=== PATIENT | male | born 1930 | race Caucasian/White ===

== ENCOUNTER 2016-08-19 | Emergency (ER) | payer MEDICARE ==
--- NOTE | 2016-08-19 01:01 | ER Document Report ---
ED General - General Chief Complaint: Testicular Problem Stated Complaint: TESTICULAR ISSUE Cannot obtain history due to: Dementia Notes: Patient is an 86-year-old male who presents with facility concerns that he had a testicular ultrasound performed earlier today that demonstrated no blood flow to the left testicle. Patient himself at time of arrival denies any complaints. He is demented and provides minimal history. He does state that the testicle had been causing pain for quite some time but has not been bothering him for the past several days. TRAVEL OUTSIDE OF THE [place] IN LAST 30 DAYS: No - Related Data Allergies/Adverse Reactions: Sulfa (Sulfonamide Antibiotics) Allergy (Verified 11/16/15 16:29) Past Medical History - General Information source: Emergency Med Personnel Cannot obtain history due to: Dementia - Social History Smoking Status: Former Smoker Frequency of alcohol use: None Drug Abuse: None Lives with: Prison Family History: Reviewed & Not Pertinent - Past Medical History Cardiac Medical History: Reports: Hx Hypercholesterolemia, Hx Hypertension Psychiatric Medical History: Denies: Hx Depression Past Surgical History: Reports: Hx Genitourinary Surgery - SUPRAPUBIC CATHETER Review of Systems - Review of Systems Notes: Constitutional: Negative for fever. HENT: Negative for sore throat. Eyes: Negative for visual changes. Cardiovascular: Negative for chest pain. Respiratory: Negative for shortness of breath. Gastrointestinal: Negative for abdominal pain, vomiting or diarrhea. Genitourinary: Negative for dysuria. Musculoskeletal: Negative for back pain. Skin: Negative for rash. Neurological: Negative for headaches, weakness or numbness. 10 point ROS negative except as marked above and in HPI. Physical Exam - Vital signs Vitals: Temp Pulse Resp BP Pulse Ox 98.6 F 81 16 142/70 H 97 08/19/16 00:15 08/19/16 00:15 08/19/16 00:15 08/19/16 00:15 08/19/16 00:15 Interpretation: Normal Notes: PHYSICAL EXAMINATION: GENERAL: Elderly-appearing male in no acute distress HEAD: Atraumatic, normocephalic. EYES: sclera anicteric, conjunctiva are normal. ENT: nares patent, oropharynx clear without exudates. Moist mucous membranes. NECK: Normal range of motion, supple without lymphadenopathy LUNGS: Breath sounds clear to auscultation bilaterally and equal. No wheezes rales or rhonchi. HEART: Regular rate and rhythm without murmurs ABDOMEN: Soft, nontender, normoactive bowel sounds. No guarding, no rebound. No masses appreciated. : The left testicle is somewhat firm and there is no cremasteric reflex on the left. No tenderness to palpation. NEUROLOGICAL: No focal neurological deficits. Moves all extremities spontaneously and on command. PSYCH: Oriented to person and city. SKIN: Warm, Dry, normal turgor, no rashes or lesions noted. Course - Re-evaluation Re-evalutation: 08/19/16 01:03 Patient presents with a ultrasound read of no blood flow to the left testicle. He has minimal to no pain by history or on exam. Testicle is slightly firm. I discussed this case with Dr. Polk who is the attending urologist purification operator [facility] who agrees that given the patient has no symptoms at this time, the testicles likely been for some time and would not be operated on or managed in any way except if it became a nidus of infection.At this time will discharge with return precautions and follow-up recommendations. Verbal discharge instructions given a the bedside and opportunity for questions given. Medication warnings reviewed. Patient is in agreement with this plan and has verbalized understanding of return precautions and the need for primary care follow-up in the next 24-72 hours. - Vital Signs Vital signs: Temp Pulse Resp BP Pulse Ox 98.6 F 81 16 142/70 H 97 08/19/16 00:15 08/19/16 00:15 08/19/16 00:15 08/19/16 00:15 08/19/16 00:15 Discharge - Discharge Clinical Impression: Testicular infarct, left Condition: Good Disposition: HOME, SELF-CARE Additional Instructions: The left testicle is . There is nothing to do about this at this time unless this becomes a source of infection. Please return the patient to the emergency department if he develops a fever greater than 100.4F, begins complaining of severe pain to the testicle, or has any other symptoms that are worrisome to.
[2016-08-19 09:35] VITALS: BP 140/59
== END 2016-08-19 04:48 | disposition home or self-care (01) ==
LOC: ER
DX: N50.812 Left testicular pain (principal); E78.00 Pure hypercholesterolemia, unspecified; I10 Essential (primary) hypertension; Z88.2 Allergy status to sulfonamides
CPT/HCPCS: 99285

== ENCOUNTER 2016-11-10 12:40 | Emergency (ER) | payer MEDICARE ==
--- NOTE | 2016-11-10 15:25 | ER Document Report ---
ED Fever - General Chief Complaint: Fever Stated Complaint: ALTERED MENTAL STATUS Time Seen by Provider: 11/10/16 15:22 Notes: Patient is an 86-year-old male who presents by EMS from [facility] after his temperature was found to be 102.4 at 1300 today. He was given 500 mg Tylenol and his temperature in the ER is 99.6. He has no complaints at this time. He denies nausea, vomiting, abdominal pain, rash, shortness of breath, chest pain, cough, urinary symptoms, diarrhea or constipation. TRAVEL OUTSIDE OF THE [place] 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 RESPIRATORY: -cough, -SOB GASTROINTESTINAL: -abdominal pain, - nausea, -vomiting, -diarrhea GENITOURINARY: +clody urine, -dysuria, -hematuria MUSCULOSKELETAL: -back pain, -neck pain SKIN: -rash or skin lesions. HEMATOLOGIC: -easy bruising or bleeding. LYMPHATIC: -swollen, enlarged glands. NEUROLOGICAL: -altered mental status or loss of consciousness, -headache, - neurologic symptoms PSYCHIATRIC: -anxiety, -depression. ALL OTHER SYSTEMS REVIEWED AND NEGATIVE. Physical Exam - Vital signs Vitals: Temp Pulse Resp BP Pulse Ox 98.8 F 81 18 151/63 H 91 L 11/10/16 12:50 11/10/16 12:50 11/10/16 12:50 11/10/16 12:50 11/10/16 12:50 - Notes Notes: PHYSICAL EXAMINATION: GENERAL: Well-appearing, well-nourished and in no acute distress. HEAD: Atraumatic, normocephalic. EYES: Pupils equal round and reactive to light, extraocular movements intact, sclera anicteric, conjunctiva are normal. ENT: nares patent, oropharynx clear without exudates. Moist mucous membranes. NECK: Normal range of motion, supple without lymphadenopathy LUNGS: Breath sounds clear to auscultation bilaterally and equal. No wheezes rales or rhonchi. HEART: Regular rate and rhythm without murmurs ABDOMEN: Soft, nontender, normoactive bowel sounds. No guarding, no rebound. No masses appreciated.Suprapubic catheter in place with cloudy yellow urine EXTREMITIES: Normal range of motion, no pitting or edema. No cyanosis. NEUROLOGICAL: Cranial nerves grossly intact. Normal speech, normal gait. Normal sensory and motor exams. PSYCH: Normal mood, normal affect. SKIN: Warm, Dry, normal turgor, no rashes or lesions noted. Course - Re-evaluation Re-evalutation: Patient appears very well. He has a suprapubic catheter with cloudy urine in bag. His chest x-ray shows possible infiltrate. Looking through old urine cultures, will begin Levaquin to help with UTI and also with possible early pneumonia. He is adamant that he does not want his suprapubic catheter changed and understands that he could become sicker. He also does not want any blood work. He is AAO 3 and capable of making his own decisions. Given strict return precautions and he understands. Will discharge him back to [facility]. - Vital Signs Vital signs: Temp Pulse Resp BP Pulse Ox 98.8 F 81 18 151/63 H 91 L 11/10/16 12:50 11/10/16 12:50 11/10/16 12:50 11/10/16 12:50 11/10/16 12:50 - EKG Interpretation by Ca EKG shows normal: Sinus rhythm, Bronson, Intervals, QRS Complexes, ST-T Waves Rate: Normal Discharge - Discharge Clinical Impression: Fever Qualifiers: Fever type: unspecified Qualified Code(s): R50.9 - Fever, unspecified Condition: Stable Disposition: REHAB FACILITY Additional Instructions: Begin the Levaquin as prescribed for urinary tract infection and possible pneumonia. Return if you have worsening symptoms. URINARY TRACT INFECTION: Your evaluation indicates that you have a urinary tract infection. This is due to germs growing in the bladder. This is a common problem. This infection usually responds quickly to antibiotics. Your antibiotic should be taken exactly as prescribed. Drink plenty of fluids -- three to four quarts a day. Occasionally, a bladder anesthetic will be prescribed to help stop the feeling of urgency until the antibiotic has a chance to clear the infection. This may cause your urine to be dark orange. Certain urine infections require a culture. If the doctor obtained a culture, the results will be back in two days. You should call to see if a change in treatment is needed. A repeat urinalysis after you finish treatment is often recommended. The physician will let you know if further testing is required. Call the doctor if you develop fever, chills, flank pain, inability to urinate, or blood in the urine. ANTIBIOTIC THERAPY: You have been given an antibiotic prescription. It's important that you take all the medication, unless instructed otherwise by your physician. Failure to complete the entire course can result in relapse of your condition. Common side effects of antibiotics include nausea, intestinal cramping, or diarrhea. Women may develop vaginal yeast infections, and babies can get yeast (thrush) in the mouth following the use of antibiotics. Contact your physician if you develop significant side effects from this medication. Allergy to this antibiotic can result in hives, wheezing, faintness, or itching. If symptoms of allergy occur, stop the medication and call the doctor. LEVOFLOXACIN: You have been given an antibacterial agent, levofloxacin (Levaquin). This medicine is not related to the penicillins, sulfas, cephalosporins, or tetracyclines. It is often given to patients who are allergic to these drugs. It has been chosen for you either because other drugs are not appropriate, or because of the nature of your problem. Levaquin should not be taken with antacids, as these can decrease its effectiveness. It can be taken without regard to meals. LEVAQUIN SHOULD NOT BE TAKEN BY CHILDREN, NURSING WOMEN, OR WOMEN. Although Levaquin is usually well-tolerated, common side effects can include nausea and diarrhea. Contact your doctor if you experience any unusual symptoms while on this medication, such as joint pain or swelling, shortness of breath, wheezing, faintness, or hives. FOLLOW-UP CARE: If you have been referred to a physician for follow-up care, call the physician s office for an appointment as you were instructed or within the next two days. If you experience worsening or a significant change in your symptoms, notify the physician immediately or return to the Emergency Department at any time for re-evaluation. Prescriptions: Levofloxacin [Levaquin 750 mg Tablet] 750 mg PO DAILY #7 tablet
--- NOTE | 2016-11-10 16:34 | RADIOLOGY REPORT (SQ) ---
EXAM DESCRIPTION: CHEST SINGLE VIEW COMPLETED DATE/TIME: 11/10/2016 3:53 pm REASON FOR STUDY: fever COMPARISON: November 2015 EXAM PARAMETERS: NUMBER OF VIEWS: One view. TECHNIQUE: Single frontal radiographic view of the chest acquired. RADIATION DOSE: NA LIMITATIONS: Patient has made a shallow inspiration. Patient is rotated on the current study. FINDINGS: LUNGS AND PLEURA: There is blunting of the left costophrenic angle consistent with a small left pleural effusion and I cannot exclude some associated atelectasis or infiltrate in the left lizet g base. Remaining lung caceres are clear. MEDIASTINUM AND HILAR STRUCTURES: No masses. Contour normal. HEART AND VASCULAR STRUCTURES: Cardiac silhouette is partially obscured due to adjacent densities but appears unchanged. BONES: No acute findings. HARDWARE: None in the chest. OTHER: No other significant finding. IMPRESSION: Left basilar density consistent with a small left pleural effusion and I cannot exclude some associated atelectasis or infiltrate in the left lung base. Other findings as noted above TECHNICAL DOCUMENTATION: JOB ID: [id number]
[2016-11-10 18:31] VITALS: BP 168/65
--- NOTE | 2016-11-10 20:32 | EKG REPORT ---
SEVERITY:- ABNORMAL ECG - SINUS RHYTHM BORDERLINE LEFT AXIS DEVIATION OLD ANTEROSEPTAL MS : Confirmed by: Eduardo Covington MD 10-Nov-2016 20:31:23
== END 2016-11-10 21:01 ==
LOC: ER 12:40
DX: R50.9 Fever, unspecified (principal); R41.82 Altered mental status, unspecified; E78.00 Pure hypercholesterolemia, unspecified; I10 Essential (primary) hypertension; Z88.2 Allergy status to sulfonamides
CPT/HCPCS: 71010; 93005; 93010; 99285

== ENCOUNTER → 2017-01-04 | Outpatient (CLI) | payer MEDICARE ==
--- NOTE | 2017-01-07 08:57 | XCELERA REPORT ---
[address] [address] Lower Extremity Arterial Evaluation Name: WILLA MCCLOUD Age: 86 yrs Gender: Male : 1930 Patient Status: Preadmit Patient Location: Study Date: 01/04/2017 01:44 PM Procedure: A color flow and duplex scan of the lower extremity arteries was performed bilaterally with velocity and waveform anaylsis. Ankle brachial indicies performed. 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 Biphasic in the Deep Femoral artery. Biphasic in the infrageniculate vessels. Retrograde filling in the Dorsalis Pedis artery. 0-19% stenosis at the Deep Femoral and 20-49 % at the infrageniculate vessels. Ankle Brachial index is 0.96. Left Side Arterial Evaluation Normal velocity and triphasic waveforms noted from the Common Femoral artery to the Popliteal artery . Biphasic in the Deep Femoral artery. Biphasic in the infrageniculate vessels. 0-19% stenosis at the Deep Femoral and 20-49 % at the infrageniculate vessels. Ankle Brachial index is 0.78. Interpretation Summary Moderate hemodynamically significant lesions in the bilateral lower extremities, on duplex imaging, at rest. : ANTONIO AGUILLON > Shaun Acevedo
== END ==
LOC: SP 13:20
PROVIDERS: ATTEND Nurse Practitioner Family
DX: L89.610 Pressure ulcer of right heel, unstageable (principal)
CPT/HCPCS: 93925

== ENCOUNTER 2017-11-17 01:15 | Inpatient (IN) | payer MEDICARE ==
--- NOTE | 2017-11-17 01:56 | ER Document Report ---
ED General - General Chief Complaint: Leg Swelling Stated Complaint: DIFFICULTY BREATHING Time Seen by Provider: 11/17/17 01:54 Notes: Patient is an 87-year-old male who presents with complaint of difficulty breathing. Patient is hard of hearing and therefore history is hard to obtain. Initially patient says he was just itching but then I informed him that the paramedics said that he had difficulty breathing [facility]. Patient then remembers that he did have some difficulty breathing earlier. He is unsure if had chest pain. He denies a history of heart problems or heart disease. He says currently he feels fine except for itching which is chronic due to his dry skin. Denies recent fevers or infections. No other complaints at this time. TRAVEL OUTSIDE OF THE [place] IN LAST 30 DAYS: No - Related Data Allergies/Adverse Reactions: Sulfa (Sulfonamide Antibiotics) Allergy (Verified 11/17/17 02:16) Past Medical History - Social History Smoking Status: Never Smoker Frequency of alcohol use: None Drug Abuse: None Family History: Reviewed & Not Pertinent - Past Medical History Cardiac Medical History: Reports: Hx Hypercholesterolemia, Hx Hypertension Psychiatric Medical History: Denies: Hx Depression Past Surgical History: Reports: Hx Genitourinary Surgery - SUPRAPUBIC CATHETER - Immunizations Hx Diphtheria, Pertussis, Tetanus Vaccination: Yes Review of Systems - Review of Systems Notes: My Normal Review Basic REVIEW OF SYSTEMS: CONSTITUTIONAL : Denies fever, chills, or sweats. Denies recent illness. EENT: Denies eye, ear, throat, or mouth pain or symptoms. Denies nasal or sinus congestion. CARDIOVASCULAR: Denies chest pain. RESPIRATORY: episode of dyspnea GASTROINTESTINAL: Denies abdominal pain. Denies nausea, vomiting, or diarrhea. GENITOURINARY: Has a suprapubic catheter in place. SKIN: Denies rash or skin lesions. NEUROLOGICAL: Denies altered mental status or loss of consciousness. Denies headache. Denies weakness or paralysis or loss of use of either side. Denies problems with gait or speech. Denies sensory or motor loss. ALL OTHER SYSTEMS REVIEWED AND NEGATIVE. Physical Exam - Vital signs Vitals: Temp 98.5 F 11/17/17 01:20 - Notes Notes: General Appearance: Well nourished, alert, cooperative, no acute distress, no obvious discomfort. Ill-appearing. Vitals: reviewed, See vital signs table. Head: no swelling or tenderness to the head Eyes: PERRL, EOMI, Conjuctiva clear Mouth: No decreasd moisture Lungs: No wheezing, No rales, No rhonci, No accessory muscle use, good air exchange bilaterally. Heart: Normal rate, Regular rythm, No murmur, no rub Abdomen: Normal BS, soft, No rigidity, No abdominal tenderness, No guarding, no rebound, no abdominal masses, no organomegaly Extremities: strength 5/5 in all extremities, good pulses in all extremities, no swelling or tenderness in the extremities, no edema. Skin: warm, dry, appropriate color, no rash Neuro: speech clear, oriented x 3, normal affect, responds appropriately to questions. Course - Re-evaluation Re-evalutation: 11/17/17 02:44 Patient is currently chest pain-free. He is not currently short of breath but did have shortness of breath tonight and last night. This is most likely is why he has the T-wave inversion and elevated troponin. Informed the nurse to obtain the weight so they can determine how much Lovenox give him. I did inform the patient of the findings. He is aware. He denies any previous history of heart attack. 11/17/17 04:[address] speak with Dr. Gray about admitting the patient. He requested to speak with cardiology first. I did speak with Dr. Stubbs, benefits specialist, who agrees that the patient can stay here at our facility; however, he just request the patient also a CTA of his lungs as part of his workup. CT has been ordered. 11/17/17 07:04 Patient is admitted. Urinalysis and outcome back does show evidence very tract infection. - Vital Signs Vital signs: Temp Pulse Resp BP Pulse Ox 97.7 F 70 20 196/97 H 100 11/17/17 06:45 11/17/17 06:45 11/17/17 06:45 11/17/17 06:45 11/17/17 06:45 - Laboratory Result Diagrams: 11/17/17 01:27 11/17/17 01:27 Laboratory results interpreted by me: 11/17/17 11/17/17 11/17/17 01:27 01:27 03:41 WBC 10.6 H RBC 3.29 L Hgb 9.3 L Hct 27.9 L RDW 16.3 H Seg Neutrophils % 88.9 H Lymphocytes % 5.3 L Absolute Neutrophils 9.5 H Chloride 109 H BUN 24 H Creatinine 1.27 H Est GFR (Non-Af Amer) 54 L Glucose 117 H Calcium 8.0 L Albumin 3.0 L Urine Protein >=500 H Urine Blood MODERATE H Urine Nitrite POSITIVE H Ur Leukocyte Esterase LARGE H - EKG Interpretation by Me Additional EKG results interpreted by me: 11/17/17 01:55 EKG is reviewed and interpreted by me. EKG shows sinus rhythm with rate of [address] segment elevation or depression. Patient does have new T-wave inversions in lateral precordial leads which are new in comparison to her old EKG from November 10, 2016. AL interval is slightly prolonged. QRS duration is within normal range. QTc interval is prolonged. Discharge - Discharge Clinical Impression: Elevated troponin Dyspnea Qualifiers: Dyspnea type: unspecified Qualified Code(s): R06.00 - Dyspnea, unspecified UTI (urinary tract infection) Qualifiers: Urinary tract infection type: catheter-associated UTI Encounter type: initial encounter Qualified Code(s): T83.51XA - Infection and inflammatory reaction due to indwelling urinary catheter, initial encounter Condition: Stable Disposition: ADMITTED INPATIENT Admitting Provider: Hospitalist Unit Admitted: [facility]
[2017-11-17 02:18] LABS: ALANINE AMINOTRANSFERASE 22 U/L (21-72); ALKALINE PHOSPHATASE 80 U/L (38-126); ANION GAP 11 (5-19); ASPARTATE AMINO TRANSFERASE 50 U/L (17-59); BILIRUBIN,DIRECT 0.4 mg/dL (0.0-0.4); BILIRUBIN,TOTAL 0.5 mg/dL (0.2-1.3); BLOOD UREA NITROGEN 24 mg/dL (7-20); CARBON DIOXIDE 23 mmol/L (22-30); CHLORIDE 109 mmol/L (98-107); GLUCOSE 117 mg/dL (75-110); POTASSIUM 4.2 mmol/L (3.6-5.0); SODIUM 142.7 mmol/L (137-145); TOTAL PROTEIN 6.5 g/dL (6.3-8.2)
[2017-11-17 02:19] LABS: ABSOLUTE EOSINOPHILS # (AUTO) 0.1 10^3/uL (0.0-0.6); ABSOLUTE LYMPHOCYTES (AUTO) 0.6 10^3/uL (0.5-4.7); ABSOLUTE MONOCYTES (AUTO) 0.5 10^3/uL (0.1-1.4); ABSOLUTE NEUT (AUTO) 9.5 10^3/uL (1.7-8.2); BASOPHILS % (AUTO) 0.3 % (0-2); EOSINOPHILS % (AUTO) 0.9 % (0-6); HEMATOCRIT 27.9 % (37.9-51.0); HEMOGLOBIN 9.3 g/dL (13.5-17.0); LYMPHOCYTES % (AUTO) 5.3 % (13-45); MEAN CORPUSCULAR HEMOGLOBIN 28.2 pg (27.0-33.4); MEAN CORPUSCULAR HGB CONC 33.3 g/dL (32.0-36.0); MEAN CORPUSCULAR VOLUME 85 fl (80-97); MONOCYTES % (AUTO) 4.6 % (3-13); PLATELET COUNT 213 10^3/uL (150-450); RED BLOOD COUNT 3.29 10^6/uL (4.35-5.55); RED CELL DISTRIBUTION WIDTH 16.3 % (11.5-14.0); SEGMENTED NEUTROPHILS % (AUTO) 88.9 % (42-78); TOTAL CELLS COUNTED % (AUTO) 100 %; WHITE BLOOD COUNT 10.6 10^3/uL (4.0-10.5)
[2017-11-17] MEDS ORDERED: ASPIRIN 325 MG TABLET PO ONE (03:04)
[2017-11-17] MEDS: ENOXAPARIN SODIUM INJ 100 MG/1 ML DISP.SYRIN SUBCUT SCH ×3 (03:21→22:12)
--- NOTE | 2017-11-17 03:21 | RADIOLOGY REPORT (SQ) ---
EXAM DESCRIPTION: XR CHEST 1 VIEW COMPLETED DATE/TME: 11/17/2017 02:04 EXAM DESCRIPTION: Single view of the chest CLINICAL HISTORY: dyspnea COMPARISON: None. FINDINGS: Single frontal view of the chest. Atherosclerotic vascular calcification. The heart is not definitely enlarged. Small left pleural effusion and left basilar airspace opacity. No pneumothorax identified. Leads overlie the chest. No acute osseous abnormalities. Degenerative change of the shoulders Upper abdominal soft tissues are unremarkable. IMPRESSION: 1. Left basilar airspace opacity may be related to atelectasis or pneumonia with small left pleural effusion
[2017-11-17] MEDS ORDERED: NORMAL SALINE 1000 ML 1,000 ML IV ONE (04:40)
[2017-11-17 04:45] LABS: APPEARANCE,URINE TURBID; BILIRUBIN,URINE NEGATIVE (NEGATIVE); COLOR,URINE YELLOW; GLUCOSE, URINE NEGATIVE (NEGATIVE); KETONES,URINE NEGATIVE (NEGATIVE); LEUKOCYTE ESTERASE,URINE LARGE (NEGATIVE); NITRITE,URINE POSITIVE (NEGATIVE); PROTEIN,URINE >=500 mg/dL (NEGATIVE); URINE SPECIFIC GRAVITY 1.007; UROBILINOGEN,URINE NEGATIVE mg/dL (<2.0)
[2017-11-17] MEDS ORDERED: NITROGLYCERIN 0.4 MG/TAB 25 TAB/BOTTLE SL PRN (04:50)
[2017-11-17] MEDS ORDERED: NORMAL SALINE 1000 ML 1,000 ML IV SCH (05:00)
[2017-11-17] MEDS ORDERED: ATORVASTATIN CALCIUM 80 MG TABLET PO ONE (05:00)
[2017-11-17] MEDS ORDERED: CEFTRIAXONE 1 GM/D5W RTU 1 GM/50 ML RTUPB IV ONE (05:00)
[2017-11-17] MEDS ORDERED: CEFTRIAXONE INJ 1000 MG VIAL ONE (05:22)
--- NOTE | 2017-11-17 06:37 | RADIOLOGY REPORT (SQ) ---
EXAM DESCRIPTION: CT CHEST ANGIOGRAPHY WITHOUT THEN WITH IV CONTRAST COMPLETED DATE/TME: 11/17/2017 04:39 EXAM DESCRIPTION: CTA of the chest per PE protocol with contrast. CLINICAL HISTORY: dyspnea, elevated troponin. BUN 24 CREATININE 1.27 COMPARISON: 11/16/2015 TECHNIQUE: CTA of the chest obtained following the uncomplicated intravenous administration of 99 mL Isovue-370. 3-D/MIP reformatted images of the chest available for evaluation. DLP: 1427.26 mGycm FINDINGS: Chest: Pulmonary arteries: Contrast bolus is adequate.No filling defects identified in the pulmonary arteries to suggest pulmonary embolus. Suboptimal evaluation of the subsegmental pulmonary arterial branches due to respiratory motion artifact. Thyroid:No abnormalities of the visualized thyroid. Great Vessels:Great vessels have normal anatomic configuration. Thoracic Aorta: Atherosclerotic calcification of the thoracic aorta. Heart: Cardiomegaly with coronary artery atherosclerosis. No significant pericardial effusion. Lymph Nodes:No enlarged mediastinal lymph nodes identified. Esophagus:No abnormalities of the esophagus identified. Other:No additional findings. Lungs: Respiratory motion artifact. Minimal bibasilar compressive atelectasis. Diffuse peribronchial interstitial thickening. Pleura: Small bilateral pleural effusions. No pneumothorax. Trachea/Airways: No acute abnormalities of the visualized trachea. Bones:No destructive osseous lesions. Degenerative change of the spine. Upper Abdomen:Limited images of the upper abdomen demonstrate no definite abnormalities of visualized portions of the liver, gallbladder, pancreas, spleen, adrenal glands, or kidneys. IMPRESSION: 1. Diffuse peribronchial interstitial thickening. This could be related to acute bronchitis or bronchopneumonia however a component of interstitial edema could also produce this appearance. 2. Mild bilateral common breasts of atelectasis. 3. Small bilateral pleural effusions. 4. Cardiomegaly with coronary artery atherosclerosis. 5. No pulmonary embolus identified. This exam was performed according to our departmental dose-optimization program, which includes automated exposure control, adjustment of the mA and/or kV according to patient size and/or use of iterative reconstruction technique.
--- NOTE | 2017-11-17 06:51 | PDOC H&P ---
History of Present Illness Admission Date/PCP: 11/17/17 05:03 CHERELLE DAMASOCARTER Patient complains of: Shortness of breath History of Present Illness: WILLA MCCLOUD is a 87 year old male [facility] resident with a past medical history of schizophrenia, hypertension, dyslipidemia and permanent suprapubic catheter. He is noted by nursing staff to have shortness of breath and brought to the emergency room for evaluation where he denies pain or shortness of breath. Evaluation reveals new T-wave inversion and elevated troponin of 2.5. Heparin is initiated and a CTA chest is ordered and is referred to the hospitalist for admission. Patient is unable to provide a helpful history. Past Medical History Cardiac Medical History: Reports: Hyperlipidema, Hypertension Psychiatric Medical History: Reports: Schizoaffective Disorder Denies: Depression Hematology: Reports: Anemia Social History Information Source: [facility] Records Lives with: [facility] Smoking Status: Unknown if Ever Smoked Frequency of Alcohol Use: None Hx Recreational Drug Use: No Drugs: None Hx Prescription Drug Abuse: No - Advance Directive Resuscitation Status: Full Code Family History Family History: Other - Unobtainable Parental Family History Reviewed: No - Unobtainable Children Family History Reviewed: No Sibling(s) Family History Reviewed.: No Medication/Allergy Home Medications: Allopurinol 300 mg PO DAILY 07/03/15 Clonidine HCl 0.3 mg PO BID 07/03/15 Finasteride 5 mg PO DAILY 07/03/15 Losartan Potassium 100 mg PO DAILY 07/03/15 Nifedipine [Nifedipine ER] 90 mg PO DAILY 07/03/15 Cyanocobalamin (Vitamin B-12) [Vitamin B12] 500 mcg PO DAILY 11/16/15 Polyethylene Glycol 3350 [Gavilax] 17 gm PO PRN PRN 11/16/15 Levofloxacin [Levaquin 750 mg Tablet] 750 mg PO DAILY #5 tablet 11/21/15 Quetiapine Fumarate 75 mg PO QHS #0 11/21/15 Levofloxacin [Levaquin 750 mg Tablet] 750 mg PO DAILY #7 tablet 11/10/16 Allergies/Adverse Reactions: Sulfa (Sulfonamide Antibiotics) Allergy (Verified 11/17/17 02:16) Review of Systems ROS unobtainable: Due to mental status - Unobtainable Constitutional: PRESENT: as per HPI. ABSENT: fever(s), headache(s), night sweats, weakness Eyes: ABSENT: visual disturbances Ears: ABSENT: hearing changes Cardiovascular: ABSENT: chest pain, dyspnea on exertion, edema, orthropnea, palpitations Respiratory: ABSENT: cough, hemoptysis Gastrointestinal: ABSENT: abdominal pain, constipation, diarrhea, hematemesis, hematochezia, nausea, vomiting Genitourinary: ABSENT: dysuria, hematuria Musculoskeletal: ABSENT: joint swelling Integumentary: ABSENT: rash, wounds Neurological: ABSENT: abnormal gait, abnormal speech, confusion, dizziness, focal weakness, syncope Psychiatric: ABSENT: anxiety, depression, homidical ideation, suicidal ideation Endocrine: ABSENT: cold intolerance, heat intolerance, polydipsia, polyuria Hematologic/Lymphatic: ABSENT: easy bleeding, easy bruising Physical Exam Vital Signs: Temp Pulse Resp BP Pulse Ox 98.5 F 17 169/99 H 97 11/17/17 01:20 11/17/17 05:00 11/17/17 04:01 11/17/17 05:00 General appearance: PRESENT: no acute distress, cooperative, hard of hearing, well-developed, well-nourished. ABSENT: disheveled Head exam: PRESENT: atraumatic, normocephalic Eye exam: PRESENT: conjunctiva pink, EOMI, PERRLA. ABSENT: scleral icterus Ear exam: PRESENT: normal external ear exam Mouth exam: PRESENT: moist, tongue midline Neck exam: ABSENT: carotid bruit, JVD, lymphadenopathy, thyromegaly Respiratory exam: PRESENT: clear to auscultation jen. ABSENT: rales, rhonchi, wheezes Cardiovascular exam: PRESENT: RRR. ABSENT: diastolic murmur, rubs, systolic murmur Pulses: PRESENT: normal dorsalis pedis pul Vascular exam: PRESENT: normal capillary refill GI/Abdominal exam: PRESENT: normal bowel sounds, soft. ABSENT: distended, guarding, mass, organolmegaly, rebound, tenderness Rectal exam: PRESENT: deferred Extremities exam: PRESENT: full ROM. ABSENT: calf tenderness, clubbing, pedal edema Neurological exam: PRESENT: alert, awake, oriented to person, oriented to place , oriented to time, oriented to situation, CN II-XII grossly intact. ABSENT: motor sensory deficit Psychiatric exam: PRESENT: appropriate affect, flat affect, normal mood. ABSENT : homicidal ideation, suicidal ideation Skin exam: PRESENT: dry, intact, warm. ABSENT: cyanosis, rash Results Impressions: Chest X-Ray 11/17/17 02:04 IMPRESSION: 1. Left basilar airspace opacity may be related to atelectasis or pneumonia with small left pleural effusion Chest/Abdomen CTA 11/17/17 04:39 IMPRESSION: 1. Diffuse peribronchial interstitial thickening. This could be related to acute bronchitis or bronchopneumonia however a component of interstitial edema could also produce this appearance. 2. Mild bilateral common breasts of atelectasis. 3. Small bilateral pleural effusions. 4. Cardiomegaly with coronary artery atherosclerosis. 5. No pulmonary embolus identified. This exam was performed according to our departmental dose-optimization program, which includes automated exposure control, adjustment of the mA and/or kV according to patient size and/or use of iterative reconstruction technique. Assessment & Plan - Diagnosis (1) Elevated troponin Is this a current diagnosis for this admission?: Yes Plan: Likely non-ST elevation FL, aspirin, heparin, Lopressor, morphine as needed cardiology consult, follow-up cardiac enzymes and cardiology consult. (2) Leukocytosis Qualifiers: Leukocytosis type: unspecified Qualified Code(s): D72.829 - Elevated white blood cell count, unspecified Is this a current diagnosis for this admission?: Yes Plan: Secondary to urinary tract infection, follow-up CBC and urine culture (3) Urinary tract infection Qualifiers: Urinary tract infection type: catheter-associated UTI Encounter type: initial encounter Is this a current diagnosis for this admission?: Yes Plan: Empiric antibiotics though possibly colonization secondary to long-standing suprapubic catheter. Follow-up CBC and urine culture. - Time Time Spent: 30 to 50 Minutes - Inpatient Certification Medical Necessity: Need Close Monitoring Due to Risk of Patient Decompensation
[2017-11-17 07:28] LABS: CREATINE KINASE MB 48.2 ng/mL (<4.55)
[2017-11-17 07:32] LABS: TROPONIN I 26.9 ng/mL
[2017-11-17] MEDS ORDERED: NITROGLYCERIN 2% OINTMENT 1 GM PACKET TP ONE (08:00)
[2017-11-17] MEDS: NITROGLYCERIN 50 MG/D5W 250 ML IV PRN (09:10)
[2017-11-17] MEDS: DOCUSATE SODIUM 100 MG CAPSULE PO SCH ×2 (09:13→17:02)
[2017-11-17] MEDS ORDERED: METOPROLOL TARTRATE 25 MG TABLET PO ONE (09:30)
[2017-11-17] MEDS ORDERED: CLONIDINE HCL 0.1 MG TABLET PO SCH (10:00)
[2017-11-17] MEDS ORDERED: ENALAPRILAT DIHYDRATE INJ/PF 1.25 MG/1 ML SDV IV ONE (11:15)
[2017-11-17] MEDS ORDERED: FAMOTIDINE 20 MG TABLET PO ONE (11:30)
[2017-11-17] MEDS ORDERED: TICAGRELOR 90 MG TABLET PO ONE (11:30)
[2017-11-17 13:40] LABS: CREATINE KINASE MB 39.8 ng/mL (<4.55); TROPONIN I 27.9 ng/mL
[2017-11-17] MEDS ORDERED: FUROSEMIDE INJ/PF 40 MG/4 ML SDV IV ONE (16:00)
--- NOTE | 2017-11-17 16:50 | XCELERA REPORT ---
[address] [address] Transthoracic Echocardiogram Report Name: WILLA MCCLOUD Age: 87 yrs Gender: Male : 1930 Patient Status: Inpatient Patient Location: [address] [place], [place] [address]A Study Date: 11/17/2017 02:34 PM Height: 71 in Weight: 195 lb BSA: 2.1 m2 Procedure: A two-dimensional transthoracic echocardiogram with color flow and Doppler was performed. The study was technically difficult with many images being suboptimal in quality. Reason For Study: NSTEMI / SOB / MURMUR History: NSTEMI / SOB / MURMUR. Ordering Physician: DEBBIE STUBBS Performed By: Blanca Perry Interpretation Summary The left ventricle is normal in size. There is normal left ventricular wall thickness. LV EF is 55% Left ventricular systolic function is low normal. Doppler measurements suggest pseudonormalized left ventricular relaxation, which is associated with grade II/IV or mild to moderate diastolic dysfunction All LV apical segments are akinetic.No clots see. There is no thrombus. The right ventricle is not well visualized secondary to technical limitations The right atrium is normal in size The left atrium is moderately dilated. The mitral valve leaflets appear thickened, but open well. There is no evidence of mitral valve prolapse. There is no vegetation seen on the mitral valve. There is no mitral valve stenosis. There is a moderate amount of mitral regurgitation There is no aortic valve stenosis There is no LVOT obstruction. No aortic regurgitation is present. There is Aortic Sclerosis without Aortic Stenosis. There is no tricuspid stenosis. There is a mild amount of tricuspid regurgitation RVSP is 43 mm of Hg , with RA mean of 10. There is mild pulmonary hypertension by echo There is a trace amount of pulmonic regurgitation There is no pulmonic valvular stenosis. Minimal pericardial effusion. There are no echocardiographic or Doppler indications for cardiac tamponade MMode/2D Measurements & Calculations RVDd: 4.3 cm LVIDd: 6.1 cm FS: 33.7 % Ao root diam: 3.0 cm IVSd: 1.1 cm LVIDs: 4.0 cm EDV(Teich): LVPWd: 1.1 cm 187.5 ml Ao root area: 7.3 cm2 ESV(Teich): LA dimension: 5.2 cm 72.0 ml EF(Teich): 61.6 % LA A2Cs: LA A4Cs: LA length: 5.1 cm LA Vol Index (BP): 28.2 cm2 23.8 cm2 54.0 ml/m2 LA Volume: 112.7 ml Doppler Measurements & Calculations MV E max ronak: MV P1/2t max ronak: Ao V2 max: LV V1 max P.0 cm/sec 63.6 cm/sec 159.5 cm/sec 3.1 mmHg MV A max ronak: MV P1/2t: 57.7 msec Ao max PG: LV V1 max: 132.7 cm/sec 10.2 mmHg 87.7 cm/sec MV E/A: 0.47 MVA(P1/2t): 3.8 cm2 MV dec slope: 322.8 cm/sec2 MV dec time: 0.20 sec PA V2 max: PI end-d ronak: TR max ronak: 92.1 cm/sec 92.3 cm/sec 287.8 cm/sec PA max P.4 mmHg TR max P.1 mmHg Left Ventricle The left ventricle is normal in size. There is normal left ventricular wall thickness. LV EF is 55%. Left ventricular systolic function is low normal. Doppler measurements suggest pseudonormalized left ventricular relaxation, which is associated with grade II/IV or mild to moderate diastolic dysfunction. All LV apical segments are akinetic.No clots see. There is no thrombus. Right Ventricle The right ventricle is not well visualized secondary to technical limitations. Atria The right atrium is normal in size. The left atrium is moderately dilated. Mitral Valve The mitral valve leaflets appear thickened, but open well. There is no evidence of mitral valve prolapse. There is no vegetation seen on the mitral valve. There is no mitral valve stenosis. There is a moderate amount of mitral regurgitation. Aortic Valve There is no aortic valvular vegetation. There is no aortic valve stenosis. There is no LVOT obstruction. There is Aortic Sclerosis without Aortic Stenosis. No aortic regurgitation is present. Tricuspid Valve There is no tricuspid stenosis. There is a mild amount of tricuspid regurgitation. RVSP is 43 mm of Hg , with RA mean of 10. There is mild pulmonary hypertension by echo. Pulmonic Valve There is no pulmonic valvular stenosis. There is a trace amount of pulmonic regurgitation. Great Vessels The aortic root is normal size. Effusions Minimal pericardial effusion. There are no echocardiographic or Doppler indications for cardiac tamponade. : DEBBIE STUBBS > Debbie Stubbs
[2017-11-17] MEDS ORDERED: NICARDIPINE HCL RTU, ISO-OS 20 MG/200 ML RTUINJ IV ONE (19:20)
[2017-11-17 19:22] LABS: CREATINE KINASE MB 24.6 ng/mL (<4.55); TROPONIN I 21.7 ng/mL
[2017-11-17] MEDS: NICARDIPINE HCL RTU, ISO-OS 20 MG/200 ML RTUINJ IV PRN ×2 (19:59→22:04)
--- NOTE | 2017-11-17 20:38 | EKG REPORT ---
SEVERITY:- ABNORMAL ECG - SINUS RHYTHM ABNORMAL T, CONSIDER ISCHEMIA, LATERAL LEADS BORDERLINE PROLONGED QT INTERVAL : Confirmed by: Debbie Stubbs MD 17-Nov-2017 20:37:15
[2017-11-17] MEDS ORDERED: QUETIAPINE FUMARATE 25 MG TABLET PO SCH (22:00)
[2017-11-17] MEDS: FAMOTIDINE 20 MG TABLET PO SCH (22:06)
[2017-11-17] MEDS: ATORVASTATIN CALCIUM 80 MG TABLET PO SCH (22:06)
[2017-11-17] MEDS: TICAGRELOR 90 MG TABLET PO SCH (22:06)
[2017-11-17] MEDS: METOPROLOL TARTRATE 25 MG TABLET PO SCH (22:06)
[2017-11-18] MEDS: NICARDIPINE HCL RTU, ISO-OS 20 MG/200 ML RTUINJ IV PRN ×9 (00:06→13:53)
[2017-11-18] MEDS: NITROGLYCERIN 50 MG/D5W 250 ML IV PRN (01:29)
[2017-11-18] MEDS: MORPHINE SULFATE 10 MG/ML INJ IV PRN ×4 (01:30→20:39)
[2017-11-18 04:07] LABS: ANION GAP 11 (5-19); BLOOD UREA NITROGEN 20 mg/dL (7-20); CALCIUM 8.3 mg/dL (8.4-10.2); CARBON DIOXIDE 26 mmol/L (22-30); CHLORIDE 106 mmol/L (98-107); CHOLESTEROL 162.32 mg/dL (0-200); CREATINE KINASE 239 U/L (55-170); GLUCOSE 143 mg/dL (75-110); POTASSIUM 3.3 mmol/L (3.6-5.0); SODIUM 143.2 mmol/L (137-145); TRIGLYCERIDES 131 mg/dL (<150)
[2017-11-18 04:18] LABS: DIRECT LDL 104 mg/dL (<100)
[2017-11-18] MEDS: CEFTRIAXONE SODIUM 1,000 MG in DEXTROSE 5%-WATER 50 ML IV SCH (05:26)
[2017-11-18 09:07] LABS: CREATINE KINASE MB 9.16 ng/mL (<4.55); TROPONIN I 10.5 ng/mL
[2017-11-18] MEDS ORDERED: OLANZAPINE 2.5 MG TABLET PO PRN (09:20)
[2017-11-18] MEDS ORDERED: CEFTRIAXONE 1 GM/D5W RTU 1 GM/50 ML RTUPB IV SCH (10:00)
[2017-11-18] MEDS ORDERED: POTASSIUM CHLORIDE 10 MEQ CAPSULE.ER PO ONE ×2 (10:00→12:00)
[2017-11-18] MEDS ORDERED: OLANZAPINE 2.5 MG TABLET PO ONE ×2 (10:00→12:00)
[2017-11-18] MEDS: DOCUSATE SODIUM 100 MG CAPSULE PO SCH ×2 (10:02→17:09)
[2017-11-18] MEDS: ASPIRIN 81 MG TABLET, ENT COATED PO SCH (10:03)
[2017-11-18] MEDS: FAMOTIDINE 20 MG TABLET PO SCH ×2 (10:03→22:48)
[2017-11-18] MEDS: ENOXAPARIN SODIUM INJ 100 MG/1 ML DISP.SYRIN SUBCUT SCH ×2 (10:04→22:48)
[2017-11-18] MEDS: METOPROLOL TARTRATE 25 MG TABLET PO SCH ×2 (10:04→22:52)
[2017-11-18] MEDS: TICAGRELOR 90 MG TABLET PO SCH ×2 (10:04→22:52)
[2017-11-18] MEDS ORDERED: METOPROLOL TARTRATE 25 MG TABLET PO ONE (10:37)
[2017-11-18] MEDS ORDERED: AMLODIPINE BESYLATE 10 MG TABLET PO ONE (10:39)
[2017-11-18] MEDS ORDERED: LISINOPRIL 10 MG TABLET PO ONE (11:00)
[2017-11-18] MEDS ORDERED: NITROGLYCERIN 15 MG (0.6 MG/1 HR) PATCH.TD24 TD ONE (11:15)
--- NOTE | 2017-11-18 15:05 | PDOC PROGRESS REPORT ---
Subjective Progress Note for:: 11/18/17 Subjective:: No overnight events. Doing better this AM. Remained on Cardizem and Nitro GTT overnight. However hsa been d/c-ed by Dr. Manrique (floor space allocator). Patient has no specific complaints for me this AM. He is concerned about not able to go to the bathroom without his wheelchair. He notes mild SOB with movement. Denies fevers , chills, CP, abdominal pain, NV. Good PO intake. Will likely transfer out of ICU tomorrow if remains stable. Reason For Visit: UTI ACS Physical Exam Vital Signs: Temp Pulse Resp BP Pulse Ox 98.1 F 77 18 138/69 H 95 11/18/17 13:56 11/18/17 12:00 11/18/17 14:40 11/18/17 14:40 11/18/17 14:40 Intake & Output 11/17/17 11/18/17 11/19/17 06:59 06:59 06:59 Intake Total 2358 651 Output Total 5400 370 Balance -3042 281 Weight 87.1 kg General appearance: PRESENT: no acute distress, cooperative, well-developed, well-nourished Head exam: PRESENT: normocephalic Mouth exam: PRESENT: moist Respiratory exam: PRESENT: unlabored. ABSENT: tachypnea Cardiovascular exam: PRESENT: RRR. ABSENT: tachycardia GI/Abdominal exam: PRESENT: normal bowel sounds, soft. ABSENT: tenderness Neurological exam: PRESENT: alert, awake, other - Pleasantly demented Psychiatric exam: PRESENT: anxious. ABSENT: agitated Results Laboratory Results: 11/18/17 03:39 11/18/17 03:39 Sodium 143.2 Potassium 3.3 L Chloride 106 Carbon Dioxide 26 Anion Gap 11 BUN 20 Creatinine 1.33 H Est GFR ( Amer) > 60 Est GFR (Non-Af Amer) 51 L Glucose 143 H Calcium 8.3 L Triglycerides 131 Cholesterol 162.32 LDL Cholesterol Direct 104 H VLDL Cholesterol 26.0 HDL Cholesterol 38 L 11/17/17 11/17/17 11/17/17 06:45 12:42 18:54 Creatine Kinase CK-MB (CK-2) 48.20 H 39.80 H 24.60 H Troponin I 26.900 27.900 21.700 11/18/17 11/18/17 11/18/17 03:39 08:13 08:13 Creatine Kinase 239 H 200 H CK-MB (CK-2) 9.16 H Troponin I 10.500 Impressions: Chest X-Ray 11/17/17 02:04 IMPRESSION: 1. Left basilar airspace opacity may be related to atelectasis or pneumonia with small left pleural effusion Chest/Abdomen CTA 11/17/17 04:39 IMPRESSION: 1. Diffuse peribronchial interstitial thickening. This could be related to acute bronchitis or bronchopneumonia however a component of interstitial edema could also produce this appearance. 2. Mild bilateral common breasts of atelectasis. 3. Small bilateral pleural effusions. 4. Cardiomegaly with coronary artery atherosclerosis. 5. No pulmonary embolus identified. This exam was performed according to our departmental dose-optimization program, which includes automated exposure control, adjustment of the mA and/or kV according to patient size and/or use of iterative reconstruction technique. Assessment & Plan - Diagnosis (1) High blood pressure associated with diabetes Is this a current diagnosis for this admission?: Yes Plan: Transferred to ICU on 11/17 due to controllably elevated BP - Started on Nitro GTT and Cardizem GTT with improvement in pressure - BP better control and drips have been discontinued - Currently on lisinopril 20mg BID, Lopressor 12.5mg BID (2) Leukocytosis Qualifiers: Leukocytosis type: unspecified Qualified Code(s): D72.829 - Elevated white blood cell count, unspecified Is this a current diagnosis for this admission?: Yes Plan: Elevated at admission, CTA chest at admission showed peribronchial interstitial thickening. Also urine culture positive for GNR * 2 organisms >100K. Will await speciation and sensitivities - Will continue Ceftriaxone which should treat most UTIs and give decent CAP coverage (minus atypical) - Low threshold to broaden abx coverage if required. (3) Pneumonia Qualifiers: Pneumonia type: due to unspecified organism Laterality: right Lung location: lower lobe of lung Qualified Code(s): J18.9 - Pneumonia, unspecified organism Is this a current diagnosis for this admission?: Yes (4) Dementia Is this a current diagnosis for this admission?: Yes Plan: Know history. Patient was anxious this AM which may be contributing to elevated BP. Ordered Zyprexa 0.5mg TID prn - Time Time Spent with patient: Less than 15 minutes
[2017-11-18] MEDS ORDERED: HALOPERIDOL LACTATE INJ 5 MG/1 ML VIAL ONE (16:37)
[2017-11-18] MEDS ORDERED: HALOPERIDOL LACTATE INJ 5 MG/1 ML VIAL IV ONE (18:30)
--- NOTE | 2017-11-18 19:39 | EKG REPORT ---
SEVERITY:- ABNORMAL ECG - SINUS RHYTHM PROBABLE LEFT ATRIAL ABNORMALITY NONSPECIFIC T ABNORMALITIES, ANT-LAT LEADS : Confirmed by: Debbie Stubbs MD 18-Nov-2017 19:38:19
--- NOTE | 2017-11-18 20:37 | Progress Note ---
Provider Note Provider Note: PROGRESS NOTE by Dr. Debbie Stubbs for 11/18/2017. The patient was transferred yesterday due to uncontrolled blood pressures/ hypertensive emergency/crisis in view of the patient's non-ST elevation CA to the ICU for Cardene drip to control his blood pressure. His blood pressure is much better much better controlled. The patient is confused but appears to be comfortable although not a reliable historian he denies any chest pain or discomfort there is no cough or sputum productio. There is no fever, and no anginal symptoms.. There is no PND orthopnea, and no leg edema. There is no ventricular arrhythmias on the monitor or atrial arrhythmias on the monitor. There is no TIA or CVA symptoms. In spite of his dementia the patient at present is not agitated. Selected Entries 11/18/17 11/18/17 11/18/17 12:00 14:40 14:55 Temperature 98.0 F Temperature Oral Source Pulse Rate 77 Heart Rate ( 71 Monitors) Respiratory 19 18 Rate Blood Pressure 138/69 H Blood Pressure 135/67 H [Right Upper Arm] Blood Pressure 92 Mean Blood Pressure 89 Mean [Right Upper Arm] O2 Sat by Pulse 97 95 Oximetry Oxygen Delivery Nasal Cannula Method ( includes room air) Oxygen Flow 2 Rate 11/17/17 11/18/17 11/18/17 18:54 03:39 08:13 Sodium 143.2 Potassium 3.3 L Chloride 106 Carbon Dioxide 26 BUN 20 Est GFR (Non-Af Amer) 51 L Glucose 143 H Calcium 8.3 L Creatine Kinase 239 H 200 H CK-MB (CK-2) 24.60 H Troponin I 21.700 Triglycerides 131 Cholesterol 162.32 LDL Cholesterol Direct 104 H VLDL Cholesterol 26.0 HDL Cholesterol 38 L 11/18/17 08:13 Sodium Potassium Chloride Carbon Dioxide BUN Est GFR (Non-Af Amer) Glucose Calcium Creatine Kinase CK-MB (CK-2) 9.16 H Troponin I 10.500 Triglycerides Cholesterol LDL Cholesterol Direct VLDL Cholesterol HDL Cholesterol On examination the patient is well-built and appears to be chronically ill. HEAD: Head is atraumatic and normocephalic. EYES: Pupils are equal round regular reactive to light accommodation extraocular movements are normal. There is no conjunctival pallor there is no scleral icterus. ENT is negative. NECK: Neck is supple, there is no JVD. There is no carotid delay, carotids equal without any bruits. All there is no lymphadenopathy, there is no goiter. Trachea central. LUNGS: There is a few dry crackles about 8 years of absent breath sounds right base greater than left base. There are no rales of CHF. At the site of absent breath sounds there is dullness present. There is no rhonchi or wheezing. Heart: S1-S2 is heard there is no S3 gallop there is no S4 gallop the systolic murmur in the left sternal border and apex there is no rub. ABDOMEN: Soft nontender. There is no hepatosplenomegaly. There is no tender areas of masses. Bowel sounds normal. There is no masses, rebound or rigidity. EXTREMITIES: Femorals are diminished there is no femoral bruits. Leg pulses are diminished.. There is no pedal edema. There is no DVT or cellulitis. There is no cyanosis or clubbing. Capillary refill is normal. There is no calf tenderness. TOMOGRAPHIC TECH: The patient is awake confused, with no focal deficits. PSYCHIATRIC: The patient does not appear to be agitated at present. Full psych exam could not be conducted due to the patient unable to cooperate. EKG: [Interpreted by me]: Sinus rhythm. Probable left atrial abnormality. Anterior T-wave inversions consistent with ischemia. Labs as above. Note the pulmonary urine culture shows gram negative rods. IMPRESSION AND RECOMMENDATION: 1. HYPOKALEMIA: This has been replenished. 2. HYPERTENSION: The patient is on 60 mcg/min of nitroglycerin infusion, and 10 mg/h of Cardene infusion. This is brought his blood pressure down will start the patient on Lopressor 50 mg p.o. twice daily first dose now, lisinopril 40 mg p.o. 1 now and 20 mg at night. We will also place the patient on amlodipine 10 mg p.o. now and daily. Also Transderm-Nitro at 50 mg per 24 hours] 0.6 mg/h] patch to the chest wa.Will discontinue the IV nitroglycerin drip about an hour after this after the above medications have been medicated . Also will taper the Cardene drip to off. Once the patient is off the IV infusions of nitroglycerin and Cardene, will transfer the patient to telemetry unit. 3. NON-STEMI/coronary artery disease: Continue Lovenox at 1 mg/kg subcutaneously every 12 hours. Continue the patient's aspirin and Brilinta. Continue nitrates beta-blockers. Also continue SEBLE inhibitor, this will help in preventing an aneurysm formation in the LV apex where the apex is akinetic. Note that the patient has no anginal symptoms. Will get serial EKGs and will trend the troponins. Note that the troponin has come down to 10 from 27 which was a result from yesterday. 4. PNEUMONIA: Continue antibiotics. 5. URINARY TRACT INFECTION: Preliminary urine culture shows growth of gram- negative rods. Await further results on this. Continue antibiotics for now. The patient does not appear to be septic at this time. 6. ACUTE RENAL FAILURE.: We will observe the patient's renal function. Will avoid nephrotoxic drugs. 7. CONGESTIVE HEART FAILURE: This is secondary to volume overload. At present there is no evidence of congestive heart failure by exam. We will recheck the patient's chest x-ray in the a.m. Note that the patient's IV fluids have been discontinued.. 8. Hyperlipidemia/dyslipidemia. Would later start the patient on a statin. 9. SCHIZOPHRENIA: Appears to be stable we will continue psych medication. 10. DEMENTIA: Appears to be stable. 11. 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 NOTE MEDICATIONS HAVE BEEN REVIEWED. His medications have been adjusted. Have discussed with the attending physician of the case and other caregiving providers. Also discussed with the patient's sister who is the patient's healthcare power of divorce attorney. MEDICAL DECISION MAKING IS OF HEIGHT COMPLEXITY. Note 50 minutes spent on this patient, with more than 50% of time spent in direct patient care. We will follow with you.
[2017-11-18] MEDS: ATORVASTATIN CALCIUM 80 MG TABLET PO SCH (22:48)
[2017-11-18] MEDS: LISINOPRIL 10 MG TABLET PO SCH (22:49)
[2017-11-18] MEDS: METOPROLOL TARTRATE 50 MG TABLET PO SCH (22:51)
[2017-11-18] MEDS: HALOPERIDOL LACTATE INJ 5 MG/1 ML VIAL IV PRN (22:53)
[2017-11-18] MEDS: METOPROLOL TARTRATE PF/INJ 5 MG/5 ML SDV IV PRN (23:09)
[2017-11-19 04:37] LABS: HEMATOCRIT 28.3 % (37.9-51.0); HEMOGLOBIN 9.5 g/dL (13.5-17.0); MEAN CORPUSCULAR HEMOGLOBIN 28.3 pg (27.0-33.4); MEAN CORPUSCULAR HGB CONC 33.6 g/dL (32.0-36.0); MEAN CORPUSCULAR VOLUME 84 fl (80-97); PLATELET COUNT 258 10^3/uL (150-450); RED BLOOD COUNT 3.36 10^6/uL (4.35-5.55); RED CELL DISTRIBUTION WIDTH 16.4 % (11.5-14.0)
[2017-11-19 04:49] LABS: ANION GAP 12 (5-19); BLOOD UREA NITROGEN 22 mg/dL (7-20); CALCIUM 8.3 mg/dL (8.4-10.2); CARBON DIOXIDE 23 mmol/L (22-30); CHLORIDE 105 mmol/L (98-107); GLUCOSE 111 mg/dL (75-110); POTASSIUM 4.2 mmol/L (3.6-5.0); SODIUM 140.1 mmol/L (137-145)
[2017-11-19 05:00] LABS: CREATINE KINASE MB 7.87 ng/mL (<4.55)
[2017-11-19 05:02] LABS: TROPONIN I 5.21 ng/mL
[2017-11-19] MEDS: CEFTRIAXONE SODIUM 1,000 MG in DEXTROSE 5%-WATER 50 ML IV SCH (05:42)
[2017-11-19] MEDS: METOPROLOL TARTRATE PF/INJ 5 MG/5 ML SDV IV PRN ×2 (05:50→12:07)
[2017-11-19] MEDS: MORPHINE SULFATE 10 MG/ML INJ IV PRN (05:51)
--- NOTE | 2017-11-19 07:17 | EKG REPORT ---
SEVERITY:- BORDERLINE ECG - SINUS TACHYCARDIA VENTRICULAR PREMATURE COMPLEX BORDERLINE T ABNORMALITIES, LATERAL LEADS : Confirmed by: Debbie Stubbs MD 19-Nov-2017 07:17:14
[2017-11-19] MEDS: OLANZAPINE 2.5 MG TABLET PO PRN (08:25)
[2017-11-19] MEDS: LISINOPRIL 10 MG TABLET PO SCH ×2 (09:04→21:35)
[2017-11-19] MEDS: FAMOTIDINE 20 MG TABLET PO SCH ×2 (09:04→21:36)
[2017-11-19] MEDS: DOCUSATE SODIUM 100 MG CAPSULE PO SCH ×2 (09:04→18:13)
[2017-11-19] MEDS: ENOXAPARIN SODIUM INJ 100 MG/1 ML DISP.SYRIN SUBCUT SCH ×2 (09:05→21:37)
[2017-11-19] MEDS: METOPROLOL TARTRATE 50 MG TABLET PO SCH ×2 (09:05→21:38)
[2017-11-19] MEDS: METOPROLOL TARTRATE 25 MG TABLET PO SCH (09:05)
[2017-11-19] MEDS: ASPIRIN 81 MG TABLET, ENT COATED PO SCH (09:05)
[2017-11-19] MEDS: NITROGLYCERIN 15 MG (0.6 MG/1 HR) PATCH.TD24 TD SCH (09:06)
[2017-11-19] MEDS: TICAGRELOR 90 MG TABLET PO SCH ×2 (09:06→21:36)
--- NOTE | 2017-11-19 11:52 | Progress Note ---
Provider Note Provider Note: PROGRESS NOTE for 11/19/[address] Dillon Stubbs. The patient has been very confused, and agitated. He had to be placed overnight on four-point soft restraints. The nurse was just able to give his medications just a few minutes ago. The patient is confused, although at present not agitated. Is widely awake. He does not appear to be in any distress such as shortness of breath or does not seem to be having chest pain, although this could not be verified by questioning the patient due to the patient's mental status. There is no ventricular arrhythmias seen. The patient is off the nitroglycerin drip and the Cardene drip. Selected Entries 11/19/17 08:00 Temperature 98.4 F Pulse Rate 96 Respiratory 10 L Rate Blood Pressure 182/97 H [Right Upper Arm] Blood Pressure 125 Mean [Right Upper Arm] O2 Sat by Pulse 96 Oximetry Oxygen Delivery Nasal Cannula Method ( includes room air) Oxygen Flow 2 Rate 11/18/17 11/19/17 11/19/17 08:13 04:25 04:25 WBC 10.0 Hgb 9.5 L Hct 28.3 L Plt Count 258 Sodium 140.1 Potassium 4.2 Chloride 105 Carbon Dioxide 23 BUN 22 H Creatinine 1.29 H Est GFR (Non-Af Amer) 53 L Glucose 111 H Calcium 8.3 L CK-MB (CK-2) 9.16 H Troponin I 10.500 11/19/17 04:25 WBC Hgb Hct Plt Count Sodium Potassium Chloride Carbon Dioxide BUN Creatinine Est GFR (Non-Af Amer) Glucose Calcium CK-MB (CK-2) 7.87 H Troponin I 5.210 On examination the patient is well-built and appears to be chronically ill. HEAD: Head is atraumatic and normocephalic. EYES: Pupils are equal round regular reactive to light accommodation extraocular movements are normal. There is no conjunctival pallor there is no scleral icterus. ENT is negative. NECK: Neck is supple, there is no JVD. There is no carotid delay, carotids equal without any bruits. All there is no lymphadenopathy, there is no goiter. Trachea central. LUNGS: There is a few dry crackles about 8 years of absent breath sounds right base greater than left base. There are no rales of CHF. At the site of absent breath sounds there is dullness present. There is no rhonchi or wheezing. Heart: S1-S2 is heard there is no S3 gallop there is no S4 gallop the systolic murmur in the left sternal border and apex there is no rub. ABDOMEN: Soft nontender. There is no hepatosplenomegaly. There is no tender areas of masses. Bowel sounds normal. There is no masses, rebound or rigidity. EXTREMITIES: Femorals are diminished there is no femoral bruits. Leg pulses are diminished.. There is no pedal edema. There is no DVT or cellulitis. There is no cyanosis or clubbing. Capillary refill is normal. There is no calf tenderness. [employer]: The patient is awake confused, with no focal deficits. PSYCHIATRIC: The patient does not appear to be agitated at present, but he is on four-point soft restraints for his earlier. Of agitation.. Full psych exam could not be conducted due to the patient unable to cooperate. EKG: My interpretation of the EKG is that the patient is having sinus tachycardia. There is one PVC present. The T-wave inversions in the anterior leads and lateral leads of much improved and there is some minor borderline T abnormalities in the lateral leads. The T-wave inversions have now resolved in the anterior and lateral leads. IMPRESSION AND RECOMMENDATION: 1. NSTEMI: The patient seems to have no chest pain or discomfort, the troponins are trending down, and the T inversions in the EKG are now resolved, with there being minor nonspecific T changes in the lateral leads. Hence would continue the Brilinta, aspirin, and the patient's beta-pérez and nitrates. Also continue the patient's statin. We will continue the patient on Lovenox 1 mg/kg subcutaneously every 12 hours until tomorrow morning and then decrease the dosage for DVT prophylaxis. NOTE that the troponin, and CPK-MB artery trending down. 2. HYPERTENSION: Blood pressure was reasonably controlled, until the patient became agitated. His oral medications have been restarted. We will recheck the patient's blood pressure. 3. CORONARY Artery DISEASE: This is the diagnosis in view of the patient's wall motion normality on the echo, and the patient's EKG changes and elevated troponin I. Seems to have no angina. There is no atrial or ventricular arrhythmias of significance, there is no congestive heart failure present. 3. TRANSIENT CONGESTIVE Heart FAILURE: Secondary to volume overload. At present resolved. 4. PNEUMONIA: Continue antibiotics. The patient does not look septic. 5. URINARY TRACT INFECTION: Seems to be improving. Continue antibiotics. 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 7. DEMENTIA: Patient with periods of agitation and increased confusion. Note that the patient is on a soft 4 point restraints. 8. HYPERLIPIDEMIA/DYSLIPIDEMIA.: Continue statins. 9. 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 ACUTE RENAL FAILURE: At present this patient seems to be in stage III A chronic kidney disease. Note that the creatinine is trending down. WILL avoid nephrotoxic drugs. MEDICATIONS REVIEWED. Will increase the patient's Lopressor to 75 mg p.o. every 12 hours. Would continue lisinopril, aspirin, Brilinta, and statin. Continue patient's nitro. Note medical decision making is of high complexity. 40 minutes spent on this patient more than 50% of time spent on direct patient care. The patient now is downgraded to IMCU unit. DISCUSSED with the attending physician on the case.
[2017-11-19] MEDS: HALOPERIDOL LACTATE INJ 5 MG/1 ML VIAL IV PRN (14:21)
--- NOTE | 2017-11-19 16:41 | PDOC PROGRESS REPORT ---
Subjective Progress Note for:: 11/19/17 Subjective:: No overnight events. Doing better this AM initially. Received Zyprexa with good response. However by lunch time, became more agitated. Was transferred out of ICU. Remains on mitts and intermittently agitated. Patient's niece at bedside Reason For Visit: UTI ACS Physical Exam Vital Signs: Temp Pulse Resp BP Pulse Ox 99.1 F 92 20 172/86 H 97 11/19/17 15:41 11/19/17 15:41 11/19/17 15:41 11/19/17 15:41 11/19/17 15:41 Intake & Output 11/18/17 11/19/17 11/20/17 06:59 06:59 06:59 Intake Total 2358 1639 118 Output Total 5400 1570 175 Balance -3042 69 -57 Weight 87.1 kg 86.4 kg General appearance: PRESENT: mild distress - due to agitation, well-developed, well-nourished. ABSENT: cooperative Mouth exam: PRESENT: dry mucosa Respiratory exam: PRESENT: unlabored Cardiovascular exam: PRESENT: RRR. ABSENT: tachycardia GI/Abdominal exam: PRESENT: soft. ABSENT: tenderness Extremities exam: PRESENT: other - Hands in mitts Neurological exam: PRESENT: altered, awake, CN II-XII grossly intact Psychiatric exam: PRESENT: agitated, anxious Focused psych exam: PRESENT: delusional Results Laboratory Results: 11/19/17 04:25 11/19/17 04:25 11/19/17 11/19/17 04:25 04:25 WBC 10.0 RBC 3.36 L Hgb 9.5 L Hct 28.3 L MCV 84 MCH 28.3 MCHC 33.6 RDW 16.4 H Plt Count 258 Sodium 140.1 Potassium 4.2 Chloride 105 Carbon Dioxide 23 Anion Gap 12 BUN 22 H Creatinine 1.29 H Est GFR ( Amer) > 60 Est GFR (Non-Af Amer) 53 L Glucose 111 H Calcium 8.3 L 11/17/17 11/17/17 11/17/17 06:45 12:42 18:54 Creatine Kinase CK-MB (CK-2) 48.20 H 39.80 H 24.60 H Troponin I 26.900 27.900 21.700 11/18/17 11/18/17 11/18/17 03:39 08:13 08:13 Creatine Kinase 239 H 200 H CK-MB (CK-2) 9.16 H Troponin I 10.500 11/19/17 04:25 Creatine Kinase CK-MB (CK-2) 7.87 H Troponin I 5.210 Impressions: Chest X-Ray 11/17/17 02:04 IMPRESSION: 1. Left basilar airspace opacity may be related to atelectasis or pneumonia with small left pleural effusion Chest/Abdomen CTA 11/17/17 04:39 IMPRESSION: 1. Diffuse peribronchial interstitial thickening. This could be related to acute bronchitis or bronchopneumonia however a component of interstitial edema could also produce this appearance. 2. Mild bilateral common breasts of atelectasis. 3. Small bilateral pleural effusions. 4. Cardiomegaly with coronary artery atherosclerosis. 5. No pulmonary embolus identified. This exam was performed according to our departmental dose-optimization program, which includes automated exposure control, adjustment of the mA and/or kV according to patient size and/or use of iterative reconstruction technique. Assessment & Plan - Diagnosis (1) High blood pressure associated with diabetes Is this a current diagnosis for this admission?: Yes Plan: Transferred to ICU on 11/17 due to controllably elevated BP. Was on itro GTT and Cardizem GTT with improvement in pressure - Currently on metoprolol 75mg lisinopril 20mg BID, Lopressor 12.5mg BID (2) Leukocytosis Qualifiers: Leukocytosis type: unspecified Qualified Code(s): D72.829 - Elevated white blood cell count, unspecified Is this a current diagnosis for this admission?: Yes Plan: Elevated at admission, CTA chest at admission showed peribronchial interstitial thickening. Also urine culture positive for GNR * 2 organisms >100K. - Urine cx growing Enterobacter Cloacae and Alcaligenes, which are both sensitive to Ceftriaxone, will treat for total 10 days due to complicated UTI (3) Pneumonia Qualifiers: Pneumonia type: due to unspecified organism Laterality: right Lung location: lower lobe of lung Qualified Code(s): J18.9 - Pneumonia, unspecified organism Is this a current diagnosis for this admission?: Yes Plan: Per above. Continue Ceftriaxone. (4) Dementia Is this a current diagnosis for this admission?: Yes Plan: Know history. Patient remains agitated/anxious. Per d/w niece, patient has underlying psychiatric disorder. Unknown which type - Continue Zyprexa 0.5mg TID prn - D/c Haldol as typical antipsychotics may make underlying illness worse - Added IV Thorazine 25mg q8 hours PRN - Given complicated case in elderly patient with underlying psych disorder, will consult Psych if not improved in next 24 hours - Time Time Spent with patient: Less than 15 minutes Anticipated discharge: SNF
[2017-11-19] MEDS: ATORVASTATIN CALCIUM 80 MG TABLET PO SCH (21:34)
[2017-11-19] MEDS ORDERED: CHLORPROMAZINE HCL INJ 25 MG/1 ML AMPULE ONE (22:00)
[2017-11-19] MEDS: CHLORPROMAZINE HCL INJ 25 MG/1 ML AMPULE IV PRN (22:25)
[2017-11-20] MEDS ORDERED: CEFTRIAXONE INJ 1000 MG VIAL ONE (05:50)
[2017-11-20] MEDS: CHLORPROMAZINE HCL INJ 25 MG/1 ML AMPULE IV PRN (06:14)
[2017-11-20] MEDS: CEFTRIAXONE SODIUM 1,000 MG in DEXTROSE 5%-WATER 50 ML IV SCH (06:14)
[2017-11-20] MEDS: METOPROLOL TARTRATE PF/INJ 5 MG/5 ML SDV IV PRN ×2 (06:55→16:49)
[2017-11-20] MEDS: ENOXAPARIN SODIUM INJ 100 MG/1 ML DISP.SYRIN SUBCUT SCH (09:40)
[2017-11-20] MEDS: NITROGLYCERIN 15 MG (0.6 MG/1 HR) PATCH.TD24 TD SCH (09:44)
[2017-11-20] MEDS: METOPROLOL TARTRATE 50 MG TABLET PO SCH ×2 (10:25→21:57)
[2017-11-20] MEDS: DOCUSATE SODIUM 100 MG CAPSULE PO SCH ×2 (10:25→21:56)
[2017-11-20] MEDS ORDERED: HYDROCORTISONE 1% CREAM 28.35 GM TP PRN (10:26)
[2017-11-20] MEDS: TICAGRELOR 90 MG TABLET PO SCH ×2 (10:32→21:57)
[2017-11-20] MEDS: LISINOPRIL 10 MG TABLET PO SCH ×2 (10:33→21:59)
[2017-11-20] MEDS: FAMOTIDINE 20 MG TABLET PO SCH ×2 (10:33→21:55)
[2017-11-20] MEDS: ASPIRIN 81 MG TABLET, ENT COATED PO SCH (10:33)
[2017-11-20] MEDS ORDERED: HYDROCORTISONE 1% CREAM 28.35 GM TP ONE (11:00)
[2017-11-20] MEDS ORDERED: CHLORPROMAZINE HCL INJ 25 MG/1 ML AMPULE IV PRN (13:03)
--- NOTE | 2017-11-20 15:11 | PROGRESS NOTE E ---
Progress Note NAME: WILLA MCCLOUD : 1930 AGE: 87Y DATE: 11/20/2017 ROOM: 308 SUBJECTIVE: Note that the patient is confused, but pleasant. He is slow. He is not agitated. He denies any chest pain or discomfort. There is no PND or orthopnea. There is no cough or sputum production. There is no arrhythmia seen on the monitor. There are no TIA or CVA symptoms. There is no PND or orthopnea or leg edema. OBJECTIVE: GENERAL: The patient is well-built. Appears to be chronically ill. VITAL SIGNS: He is afebrile, with a temperature of 98.6 degrees Fahrenheit. Pulse is 91 beats per minute. Blood pressure 168/86, respirations are 20 per minute. O2 sats are 96% on 2 liters per nasal cannula. HEENT: Head is atraumatic, normocephalic. Eyes: Pupils are equal, regular, round, reactive to light and accommodation. Extraocular movements are normal. There is no conjunctival pallor. There is no scleral icterus. ENT is negative. NECK: Supple. There is no JVD. Carotids are equal. There is no bruit. There is no lymphadenopathy. There is no goiter. There is no JVD. Trachea is central. LUNGS: Show dry crackles, right base greater than left base. There is no rhonchi or wheezing. There are no rales or CHF. CHEST: There is no chest wall tenderness. S1, S2 are heard. There is no S3 gallop. There is no S4 gallop. There is a systolic murmur at the left sternal border, at the apex. There is no rub. ABDOMEN: Soft, nontender. There is no hepatosplenomegaly. Bowel sounds are well-heard. There are no tender areas or masses. EXTREMITIES: Femorals are diminished. There are no femoral bruits. Leg pulses are diminished. There is no pedal edema. There is no DVT or cellulitis. There is no cyanosis or clubbing. Capillary refill is normal. There is no calf tenderness. OUTSIDE [employer]ES: The patient is awake, confused, with no focal deficits. PSYCHIATRIC: The patient does not appear to be agitated. A full psychiatric exam could not be done, due to patient being not oriented. IMPRESSION: 1. NON-ST ELEVATION [place]. Patient with no chest discomfort. The EKG *------* have normalized; hence, will continue the patient on Brilinta, aspirin, beta pérez and nitrates and amlodipine. Will stop the patient's full dose Lovenox. 2. CORONARY ARTERY DISEASE. 3. HYPERTENSION, NOT WELL-CONTROLLED. We will increase the patient's lisinopril to 40 mg p.o. q.12 hours. 4. TRANSIENT CONGESTIVE HEART FAILURE, SECONDARY TO VOLUME OVERLOAD, WITH NO RECURRENCE, AT PRESENT COMPENSATED. 5. PNEUMONIA. Continue antibiotics. Will recheck the patient's chest x-ray in the a.m. to see if there is improvement. 6. URINARY TRACT INFECTION. Appears to be improving. We will continue antibiotics. 7. *------*. Continue psych medication. 8. DEMENTIA. Patient with periods of agitation. At present, the patient appears to be calm. 9. HYPERLIPIDEMIA AND DYSLIPIDEMIA. Continue statin. 10. CHRONIC SUPRAPUBIC CYSTOSTOMY CATHETER IN-SITU. 11. ACUTE RENAL FAILURE. Renal function is much improved, but still GFR yesterday was 53. Will recheck the patient's BMP in the a.m. Also will recheck the patient's troponin I in the morning. Note, the patient's medications have been reviewed and medications have been adjusted. Medical decision-making today is of high complexity in view of the need for changes in the medications and in view of the patient's blood pressure being uncontrolled. Forty minutes spent on the patient, with more than 50% of the time spent on direct patient care. Will follow with you. Will also check the patient's chest x-ray in the a.m. and also recheck the patient's troponin I to make sure it is trending down. Anticipate discharge pretty soon. DICTATING PHYSICIAN: CHAYA BUTLER M.D. [id number] PHY#: [id number] ID: [id number] JOB#: [id number] ACCT: [id number] cc: >
--- NOTE | 2017-11-20 15:59 | PDOC PROGRESS REPORT ---
Subjective Progress Note for:: 11/20/17 Subjective:: No overnight events. Received IV Thorazine with improvement in agitation. Doing much better per RN report. Noted to be more sleepy today however wake up appropriately. PO intake good. No other complaints. Likely improving and should be ready for transfer back to [place] on Tuesday 11/21 Reason For Visit: UTI ACS Physical Exam Vital Signs: Temp Pulse Resp BP Pulse Ox 99.1 F 94 18 171/85 H 99 11/20/17 11:43 11/20/17 14:00 11/20/17 11:43 11/20/17 11:43 11/20/17 11:43 Intake & Output 11/19/17 11/20/17 11/21/17 06:59 06:59 06:59 Intake Total 1639 661 340 Output Total 1570 1000 200 Balance 69 -339 140 Weight 86.4 kg 88.3 kg General appearance: PRESENT: no acute distress, hard of hearing, well-developed , well-nourished Head exam: PRESENT: normocephalic Mouth exam: PRESENT: moist Respiratory exam: PRESENT: unlabored. ABSENT: tachypnea Cardiovascular exam: PRESENT: +S1, +S2. ABSENT: tachycardia GI/Abdominal exam: PRESENT: soft. ABSENT: tenderness Neurological exam: PRESENT: alert, oriented to person, CN II-XII grossly intact. ABSENT: oriented to place, oriented to time Skin exam: PRESENT: erythema - From itching/scratching, skin tears Results Laboratory Results: 11/19/17 04:25 11/19/17 04:25 11/17/17 11/17/17 11/17/17 06:45 12:42 18:54 Creatine Kinase CK-MB (CK-2) 48.20 H 39.80 H 24.60 H Troponin I 26.900 27.900 21.700 11/18/17 11/18/17 11/18/17 03:39 08:13 08:13 Creatine Kinase 239 H 200 H CK-MB (CK-2) 9.16 H Troponin I 10.500 11/19/17 04:25 Creatine Kinase CK-MB (CK-2) 7.87 H Troponin I 5.210 Impressions: Chest X-Ray 11/17/17 02:04 IMPRESSION: 1. Left basilar airspace opacity may be related to atelectasis or pneumonia with small left pleural effusion Chest/Abdomen CTA 11/17/17 04:39 IMPRESSION: 1. Diffuse peribronchial interstitial thickening. This could be related to acute bronchitis or bronchopneumonia however a component of interstitial edema could also produce this appearance. 2. Mild bilateral common breasts of atelectasis. 3. Small bilateral pleural effusions. 4. Cardiomegaly with coronary artery atherosclerosis. 5. No pulmonary embolus identified. This exam was performed according to our departmental dose-optimization program, which includes automated exposure control, adjustment of the mA and/or kV according to patient size and/or use of iterative reconstruction technique. Assessment & Plan - Diagnosis (1) High blood pressure associated with diabetes Is this a current diagnosis for this admission?: Yes Plan: Transferred to ICU on 11/17 due to controllably elevated BP. Was on itro GTT and Cardizem GTT with improvement in pressure 11/20 updates - BP's remain elevated. Likely driven by both essential HTN and intermittent agitation - Currently on metoprolol 75mg, Lopressor 12.5mg BID - Lisinopril 20mg BID increased on 11/20 to 40m BID - Cardiology following, appreciate recs (2) Leukocytosis Qualifiers: Leukocytosis type: unspecified Qualified Code(s): D72.829 - Elevated white blood cell count, unspecified Is this a current diagnosis for this admission?: Yes Plan: Elevated at admission, CTA chest at admission showed peribronchial interstitial thickening. Also urine culture positive for GNR * 2 organisms >100K. - Urine cx growing Enterobacter Cloacae and Alcaligenes, which are both sensitive to Ceftriaxone, will treat for total 10 days due to complicated UTI, started on 11/18 - Can transfer to PO antibiotics at time of discharge (3) Dementia Is this a current diagnosis for this admission?: Yes Plan: Know history. Patient remains agitated/anxious. Per d/w niece, patient has underlying psychiatric disorder. 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 History of CAD - Continue ASA 81mg, Brilinta, and cardiac meds per above - Lovenox discontinued by cardiology on 11/20 - Time Time Spent with patient: Less than 15 minutes Anticipated discharge: SNF Within: within 24 hours, within 48 hours
[2017-11-20] MEDS: MORPHINE SULFATE 10 MG/ML INJ IV PRN (16:50)
[2017-11-20] MEDS: HYDRALAZINE HCL INJ/PF 20 MG/1 ML SDV IV PRN (20:24)
--- NOTE | 2017-11-20 21:10 | CONSULTATION REPORT E ---
Consultation Report NAME: WILLA MCCLOUD : 1930 AGE: 87Y DATE: 612 A TO: CHAYA BUTLER M.D. FROM: SUSY CARRASQUILLO M.D. Requesting Physician CONTINUATION LUNGS: No history of cough, wheezing, or sputum production. No history of asthma or COPD. No history of pulmonary embolism. No history of sleep apnea. Note that the patient had some shortness of breath on admission which he does not remember, but there was no wheezing or cough. CARDIAC: History of hypertension present. No history of hyperlipidemia. No history of MS, angina, or past history of congestive heart failure or cardiac arrhythmia. No history of syncope. Although there is no history of congestive heart failure, the patient had some element of heart failure for which they gave Lasix. This in my opinion is due to the patient receiving a lot of IV fluids and also the patient's blood pressure being very uncontrolled. GI: No history of GI bleed, no history GERD. No history of jaundice. No history of hepatitis. ENDOCRINE: No history of diabetes mellitus. No history of thyroid disease. RENAL: As per the sister, there is no history of chronic kidney disease, but the patient has a GFR which is reduced. He is not clear whether this is acute renal failure. The patient is being admitted for a UTI. He has a chronic urinary tract obstruction and has suprapubic catheter. He has a history of prostate problems, but no history of prostate cancer. CENTRAL NERVOUS SYSTEM: No history of TIA or CVA. MUSCULOSKELETAL: No history of arthritis or collagen vascular disease. HEMATOLOGICAL: No history of bleeding diastasis or clotting disorders. PSYCHIATRIC: History of schizophrenia and history of dementia. No agitation. ALLERGIES: He is allergic to SULFA. ADVANCE DIRECTIVES: The patient is a DNR. His sister is his health care power of privacy attorney. MEDICATIONS: 1. Aspirin 325 mg p.o. x1 and 81 mg/daily. 2. Atorvastatin 80 mg p.o. 1 and 80 mg p.o. at bedtime. 3. Ceftriaxone 1 g IV piggyback x1 and 1 g IV q.6 a.m. 4. Colace 100 mg p.o. b.i.d. 5. Lovenox 90 mg subcutaneously q.12 hours. 6. Pepcid 20 mg p.o. b.i.d. PHYSICAL EXAMINATION: GENERAL: On examination, the patient appears to be slightly short of breath although he denies any symptoms. He has no chest pain at present, but he does seem to have some orthopnea. He appears chronically ill. VITAL SIGNS: He is afebrile with a temperature of 97.8 degrees Fahrenheit, his pulse is 78 beats per minute, blood pressure is 194/93, respirations is 16 per minute, O2 saturations are 97% 3 L. HEENT: Head is atraumatic, normocephalic. Eyes: Pupils are equal, round, regular, and reactive to light and accommodation. Extraocular movements are normal. Ears: Tympanic membranes are intact. External auditory canals are clear. Nose: There is no deviation of nasal septum. There is no inflammation of the nasal mucous membranes. Mouth: Mucous membranes are moist. Tongue is moist. There is no ulcer present or bleeding of the gums. Throat: There is no redness of the oropharynx. There are no exudates. SKIN: There is no skin rashes. There is no petechia or ecchymosis. There are no skin lesions. NECK: Supple. There is mild JVD present. Carotids are equal. There is no bruit. There is no lymphadenopathy. There is no goiter. Trachea is central. LUNGS: Show a few dry crackles in the left base and a few bibasilar rales. There is no rhonchi or wheezing. HEART: S1, S2 is heard. There is no S3 gallop. There is no S4 gallop. There is a systolic murmur in the left sternal border of the apex. There is no rub. ABDOMEN: Soft, nontender. There is no hepatosplenomegaly. Bowel sounds are present. EXTREMITIES: Femorals are diminished. Leg pulses are diminished. There is no pedal edema. There is no DVT or cellulitis. There is no calf tenderness. There is no cyanosis or clubbing. CENTRAL NERVOUS SYSTEM: The patient is conscious, awake, appears to be alert, and with no focal deficit. PSYCHIATRIC: The patient is oriented to person, but not to place or time. The patient does not appear to be agitated. DIAGNOSTIC STUDIES: The patient's EKG shows sinus rhythm, abnormal T-wave inversion in the lateral leads consistent with ischemia, borderline prolonged QT interval. The patient's chest x-ray shows a possible infiltrate in the left lower lobe with a small pleural effusion. The patient's chest, abdomen CT shows mild bilateral basal atelectasis, small bilateral pleural effusion, cardiomegaly with coronary atherosclerosis, diffuse peribronchial interstitial thickening which could be related to acute bronchitis or bronchial pneumonia, however, a component of interstitial edema could also produce as appearance. No pulmonary embolus detected. The patient's sodium is 143%, potassium 4.2, chloride is 109, CO2 is 23, the patient's BUN is 24, creatinine is 1.27, GFR is mL, which is mild chronic kidney disease stage 3A. Glucose of 117. His calcium is 8. His liver function tests are normal. His albumin is low at 3. Total protein 6.5. His troponin-I initially was 2.50 and geraldine up to 26.90. His CPK-MB is elevated at 48.20. His white count is 10.6, hemoglobin is 9.3, hematocrit is 27.9, and his platelet count is 213,000. IMPRESSION: 1. Acute non-ST elevation MS, most likely in the lateral leads. The patient's prognosis is very poor in view of the significantly elevated troponin-I. 2. Hypertensive crisis/urgency. 3. Acute renal failure which seems to be mild. 4. Urinary tract infection with possible urosepsis. 5. Chronic suprapubic catheter in situ. 6. History of hypertension, at present in hypertensive crisis. 7. Schizophrenia. 8. Dementia. 9. History of gout as per chart. RECOMMENDATIONS: Continue aspirin 81 mg p.o. daily. We will continue Lovenox. We will start the patient on a nitroglycerin drip and also give the patient 25 mg of Lopressor and continue the patient's Lopressor at 25 mg p.o. b.i.d. Discussed the option of transferring the patient to a tertiary care center for cardiac catheterization, but the sister who is the health care power of privacy attorney states that the patient did not wish any aggressive treatment and did not want any aggressive procedures done or any invasive procedures done. Hence, they want to be treated medically. They are aware of the risks which could include worsening of the ejection fraction and also cardiac arrhythmias, congestive heart failure and event fatality, but they are very definite about being a DNR and being treated medically. They do not want any invasive procedure. Hence, as mentioned earlier, we will continue the patient on Lovenox 1 mg/kg subcutaneously if it allows. Continue aspirin. We will start the patient on Lopressor 25 mg p.o. now and q.12 hours. We will start the patient on IV nitroglycerin drip initially at 20 mcg/min and titrate to control the blood pressure. If the blood pressure does not get under control, the patient will be transferred to the ICU to start him on Cardene drip. We will also start the patient on Brilinta 90 mg p.o. q.12 hours. We will serially follow the patient's troponin-I. We will get serial EKGs. Note, 60 minutes was spent on the patient. The patient was seen at 9:45 a.m. Medical decision-making is of high complexity. Medications have been reviewed. Medications have been added/adjusted. Would also continue the patient's statin. Discussed the case with the patient and the patient's sister and also with the attending physician on the case and also with the nurses taking care of the patient. We will recheck the patient later and if the patient's blood pressure is still high, we will transfer him to the ICU for a Cardene drip. The patient's echocardiogram shows that all LV apical segments are akinetic, LV ejection fraction is low normal at 55%. There is a grade 2 or mild to moderate diastolic dysfunction. There is no thrombus in the LV apex, which is akinetic. The left atrium is moderately dilated. There is a moderate amount of mitral regurgitation. There is no aortic stenosis. There is no outflow tract obstruction. There is no aortic regurgitation, there is aortic sclerosis without stenosis. There is a mild number of tricuspid regurgitation with mild pulmonary hypertension, right ventricular systolic pressure is 43 mmHg. There is minimal pericardial effusion without echo evidence of tamponade. The echo report also has been discussed with the patient and with the patient's sister and with the attending physician on the case. We will follow with you. Thanking you. DICTATING PHYSICIAN: CHAYA BUTLER M.D. [id number] PHY#: [id number] ID: [id number] JOB#: [id number] ACCT: [id number] cc:CHAYA BUTLER M.D. >
--- NOTE | 2017-11-20 21:10 | CONSULTATION REPORT E ---
Consultation Report NAME: WILLA MCCLOUD : 1930 AGE: 87Y DATE: 11/17/2017 612 A TO: CHAYA BUTLER M.D. FROM: SUSY CARRASQUILLO M.D. Requesting Physician REASON FOR CONSULTATION: Patient with elevated troponin I and abnormal EKG. Note that the patient was seen at 9:50 a.m. today and a total of 60 minute spent on this patient, including trying to review his records and also speaking to his sister who is the patient's healthcare power of attorney general. HISTORY OF PRESENT ILLNESS: The patient is an 87-year-old male with a history of hypertension, history of schizophrenia, and a history of dementia, who is very hard of hearing and was a [facility] resident, complained of being short of breath, which the patient does not remember. He came to the emergency room and was found to have urinary tract infection and was treated with IV fluids and antibiotics. Subsequently, his troponin I came back elevated initially at 2.5 and subsequently went up to 26 and there was also lateral ischemic T-wave changes on the EKG suggesting that this is non-ST elevation [place]. The patient does not remember if he had chest pain, but he says that he has some pain. He remembers having some pain on the left, but on pressing on the chest, he says that it is tender and reproducing. The patient, in view of his dementia and communication, hearing being very poor, a reliable history could not be obtained. He has no history of rigors. PAST SURGICAL HISTORY: 1. Suprapubic catheter placement. 2. Skin cancer removal. PAST MEDICAL HISTORY: Positive for a history of hypertension . There is no history of coronary artery disease or [place]. No history of diabetes mellitus. No history of heart failure in the past. No history of arrhythmias or syncope. He does have a history of schizophrenia and also has a history of dementia. He is also very severely hard of hearing. There is no headache, seizures. No history of TIA or CVA. REVIEW OF SYSTEMS: Limited. CONSTITUTIONAL: There is no history of fever or chills. No history of headaches or dizziness. EYES: No history of visual problems. EARS: The patient is severely hard of hearing. There are no recurrent ear infections. NOSE: No nosebleeds. MOUTH: Subjective pain and swelling. SKIN: History of skin cancer removed with no recurrence. No pruritus. No history of jaundice. NECK: No history of swelling in the neck or goiter. LUNGS: No history of asthma or COPD. Note that the patient had some increasing shortness of breath due to his uncontrolled blood pressure and also due to the patient going into volume overload CHF since he received a lot of IV fluids. END OF DICTATION DICTATING PHYSICIAN: CHAYA BUTLER M.D. [id number] PHY#: [id number] ID: [id number] JOB#: [id number] ACCT: [id number] cc:CHAYA BUTLER M.D. >
[2017-11-20] MEDS: ATORVASTATIN CALCIUM 80 MG TABLET PO SCH (22:00)
[2017-11-21] MEDS: HYDRALAZINE HCL INJ/PF 20 MG/1 ML SDV IV PRN ×2 (04:31→08:34)
[2017-11-21] MEDS: CEFTRIAXONE SODIUM 1,000 MG in DEXTROSE 5%-WATER 50 ML IV SCH (05:28)
[2017-11-21 07:43] LABS: ANION GAP 12 (5-19); BLOOD UREA NITROGEN 24 mg/dL (7-20); CALCIUM 8.3 mg/dL (8.4-10.2); CARBON DIOXIDE 26 mmol/L (22-30); CHLORIDE 108 mmol/L (98-107); GLUCOSE 84 mg/dL (75-110); POTASSIUM 3.5 mmol/L (3.6-5.0); SODIUM 145.6 mmol/L (137-145)
--- NOTE | 2017-11-21 08:11 | RADIOLOGY REPORT (SQ) ---
EXAM DESCRIPTION: CHEST SINGLE VIEW COMPLETED DATE/TIME: 11/21/2017 7:55 am REASON FOR STUDY: PNEUMONIA COMPARISON: CT chest 11/16/2015, 11/17/2017 Chest films 11/10/2016, 11/17/2016 EXAM PARAMETERS: NUMBER OF VIEWS: One view. TECHNIQUE: Single frontal radiographic view of the chest acquired. RADIATION DOSE: NA LIMITATIONS: None. FINDINGS: LUNGS AND PLEURA: Patchy bibasilar consolidation is present atelectasis versus pneumonia. Trace left pleural effusion. No pneumothorax. MEDIASTINUM AND HILAR STRUCTURES: No masses. Contour normal. HEART AND VASCULAR STRUCTURES: Mild cardiomegaly, stable BONES: No acute findings. HARDWARE: None in the chest. OTHER: No other significant finding. IMPRESSION: Patchy bibasilar consolidation is present left greater than right atelectasis versus pne umonia. Trace left pleural effusion. TECHNICAL DOCUMENTATION: JOB ID: [id number] [employer]- All Rights Reserved Reading location - IP/workstation name: [email or web address]
[2017-11-21] MEDS ORDERED: HYDRALAZINE HCL 50 MG TABLET PO ONE (09:00)
[2017-11-21] MEDS: NITROGLYCERIN 15 MG (0.6 MG/1 HR) PATCH.TD24 TD SCH (10:42)
[2017-11-21] MEDS: HYDROCORTISONE 1% CREAM 28.35 GM TP SCH (10:44)
[2017-11-21] MEDS: METOPROLOL TARTRATE 50 MG TABLET PO SCH ×2 (10:45→22:02)
[2017-11-21] MEDS: FAMOTIDINE 20 MG TABLET PO SCH ×2 (10:45→22:07)
[2017-11-21] MEDS: LISINOPRIL 10 MG TABLET PO SCH ×2 (10:45→21:59)
[2017-11-21] MEDS: TICAGRELOR 90 MG TABLET PO SCH ×2 (10:45→22:03)
[2017-11-21] MEDS: DOCUSATE SODIUM 100 MG CAPSULE PO SCH ×2 (10:45→18:05)
[2017-11-21] MEDS: ASPIRIN 81 MG TABLET, ENT COATED PO SCH (10:45)
--- NOTE | 2017-11-21 10:52 | PDOC PROGRESS REPORT ---
Subjective Progress Note for:: 11/21/17 Subjective:: This is a 87 years old male patient transferred from [facility]. Patient diagnosed with complicated UTI and non-STEMI. This morning I seen patient resting in bed and dozing. The previous day he has acute agitation which subsided after he was given Thorazine. His blood culture grew 3 suspicious of organisms and all are fortunately sensitive to ceftriaxone. Reason For Visit: UTI ACS Physical Exam Vital Signs: Temp Pulse Resp BP Pulse Ox 98.6 F 94 14 181/86 H 96 11/21/17 07:19 11/21/17 07:19 11/21/17 07:19 11/21/17 07:19 11/21/17 08:53 Intake & Output 11/20/17 11/21/17 11/22/17 06:59 06:59 06:59 Intake Total 661 885 Output Total 1000 1100 Balance -339 -215 Weight 88.3 kg 86.8 kg General appearance: PRESENT: no acute distress Head exam: PRESENT: atraumatic Eye exam: PRESENT: conjunctiva pink Mouth exam: PRESENT: moist Respiratory exam: PRESENT: clear to auscultation jen. ABSENT: rales, rhonchi, wheezes Cardiovascular exam: PRESENT: RRR. ABSENT: diastolic murmur, rubs, systolic murmur GI/Abdominal exam: PRESENT: normal bowel sounds, soft. ABSENT: distended, guarding, mass, organolmegaly, rebound, tenderness Neurological exam: PRESENT: other - Somewhat sleepy. ABSENT: motor sensory deficit Results Laboratory Results: 11/19/17 04:25 11/21/17 07:00 11/21/17 07:00 Sodium 145.6 H Potassium 3.5 L Chloride 108 H Carbon Dioxide 26 Anion Gap 12 BUN 24 H Creatinine 1.34 H Est GFR ( Amer) > 60 Est GFR (Non-Af Amer) 50 L Glucose 84 Calcium 8.3 L 11/17/17 11/17/17 11/17/17 06:45 12:42 18:54 Creatine Kinase CK-MB (CK-2) 48.20 H 39.80 H 24.60 H Troponin I 26.900 27.900 21.700 11/18/17 11/18/17 11/18/17 03:39 08:13 08:13 Creatine Kinase 239 H 200 H CK-MB (CK-2) 9.16 H Troponin I 10.500 11/19/17 11/21/17 04:25 07:00 Creatine Kinase CK-MB (CK-2) 7.87 H Troponin I 5.210 3.730 Impressions: Chest/Abdomen CTA 11/17/17 04:39 IMPRESSION: 1. Diffuse peribronchial interstitial thickening. This could be related to acute bronchitis or bronchopneumonia however a component of interstitial edema could also produce this appearance. 2. Mild bilateral common breasts of atelectasis. 3. Small bilateral pleural effusions. 4. Cardiomegaly with coronary artery atherosclerosis. 5. No pulmonary embolus identified. This exam was performed according to our departmental dose-optimization program, which includes automated exposure control, adjustment of the mA and/or kV according to patient size and/or use of iterative reconstruction technique. Chest X-Ray 11/21/17 06:00 IMPRESSION: Patchy bibasilar consolidation is present left greater than right atelectasis versus pneumonia. Trace left pleural effusion. Assessment & Plan - Diagnosis (1) Non-STEMI (non-ST elevated myocardial infarction) Is this a current diagnosis for this admission?: Yes Plan: Patient has been managed with Lovenox, Brilinta, metoprolol and Lipitor. Dr. Stubbs has been seeing this patient. (2) Complicated UTI (urinary tract infection) Is this a current diagnosis for this admission?: Yes Plan: Urine culture grew 3 organisms and all are sensitive to ceftriaxone. (3) Leukocytosis Is this a current diagnosis for this admission?: Yes Plan: Trending down (4) Hypertension Qualifiers: Hypertension type: essential hypertension Qualified Code(s): I10 - Essential (primary) hypertension Is this a current diagnosis for this admission?: Yes Plan: Uncontrolled. Metoprolol 50 mg twice daily added (5) Dementia Qualifiers: Dementia type: unspecified type Is this a current diagnosis for this admission?: Yes Plan: With behavioral disorder. - Time Time Spent with patient: 25-34 minutes
[2017-11-21] MEDS ORDERED: HALOPERIDOL LACTATE INJ 5 MG/1 ML VIAL ONE (11:00)
[2017-11-21] MEDS: HYDRALAZINE HCL 50 MG TABLET PO SCH ×2 (13:19→22:03)
[2017-11-21] MEDS: METOPROLOL TARTRATE PF/INJ 5 MG/5 ML SDV IV PRN (20:11)
[2017-11-21] MEDS: OLANZAPINE 2.5 MG TABLET PO PRN (21:59)
[2017-11-21] MEDS: ATORVASTATIN CALCIUM 80 MG TABLET PO SCH (22:07)
[2017-11-22] MEDS: METOPROLOL TARTRATE PF/INJ 5 MG/5 ML SDV IV PRN ×2 (04:06→12:07)
[2017-11-22] MEDS: CEFTRIAXONE SODIUM 1,000 MG in DEXTROSE 5%-WATER 50 ML IV SCH (06:29)
[2017-11-22] MEDS: HYDRALAZINE HCL 50 MG TABLET PO SCH ×3 (06:30→21:51)
--- NOTE | 2017-11-22 06:56 | PROGRESS NOTE E ---
Progress Note NAME: WILLA MCCLOUD : 1930 AGE: 87Y DATE: 11/21/2017 ROOM: 308 SUBJECTIVE: Note that the patient at present is confused, but is not agitated. Thorazine seems to be controlling his agitation. The patient seems to be comfortable otherwise, although confused. He has no chest pain or discomfort, but the patient's answers are not very reliable. There is no arrhythmia seen on the monitor. There is no PND noted. The patient is able to lie down flat. There is no leg edema. There are no arrhythmias on the monitor. OBJECTIVE: GENERAL: The patient is well built, appears to be chronically ill. VITAL SIGNS: He is afebrile with a temperature of 98.1 degrees Fahrenheit. Pulse is 91 beats per minute. Blood pressure is 167/79. Respirations are 13 per minute. O2 sats are 97% on room air. HEENT: Head is atraumatic, normocephalic. Eyes: Pupils are equal, round, regular, reactive to light and accommodation. Extraocular movements are normal. There is no conjunctival pallor. There is no scleral icterus. ENT is negative. NECK: Supple. There is no JVD. Carotids are equal. There is no bruit. There is no lymphadenopathy. There is no goiter. There is no JVD. Trachea is central. LUNGS: Show a few dry crackles in the right base, clear in the left base. There is no rhonchi or wheezing. There are no rales or CHF. CHEST: There is no chest wall tenderness. S1 and S2 are heard. There is no S3 gallop. There is no S4 gallop. There is a systolic murmur in the left sternal border in the apex, but there is no rub. ABDOMEN: Soft, nontender. There is no hepatosplenomegaly. Bowel sounds are well heard. There are no tender areas or masses. EXTREMITIES: Femorals are diminished. There are no femoral bruits. Leg pulses are diminished. There is no pedal edema. There is no DVT or cellulitis. There is no cyanosis or clubbing. Capillary refill is normal. There is no calf tenderness. CENTRAL NERVOUS SYSTEM: The patient is awake, confused, with no focal deficit. PSYCHIATRIC: The patient at present is not agitated, but he is confused. A full psychiatric exam could not be done due to the patient's mental confusion. IMAGING STUDIES: Chest x-ray shows patchy bibasilar consolidation is present, left greater than right; atelectasis versus pneumonia. There is trace left pleural effusion. LABORATORY DATA: The patient's sodium is 145.6. Potassium is 3.5. Chloride is 108. CO2 is 23. The patient's BUN is 24. Creatinine is 1.34. GFR is 50 mL/min, which is stage 3 chronic kidney disease. His calcium is 8.3. His glucose is 84. The patient's troponin I has come down to 3.730. ASSESSMENT: 1. NON-ST ELEVATION MYOCARDIAL INFARCTION. THE PATIENT WITH NO CHEST DISCOMFORT. THE EKG T-INVERSIONS HAVE NORMALIZED BY *------* OF HIS EKG. Continue the patient on Brilinta, aspirin. Increase the patient's beta pérez to 100 mg p.o. q. 12 hours and continue nitrates and amlodipine. Note: The patient's full-dose Lovenox has been stopped. 2. CORONARY ARTERY DISEASE. At present, the patient has no anginal symptoms. 3. HYPERTENSION, STILL NOT WELL CONTROLLED. The patient will be started on hydralazine 50 mg p.o. q. 8 hours. 4. PNEUMONIA. Continue antibiotics. Chest x-ray shows improvement. 5. URINARY TRACT INFECTION. This seems to have resolved. 6. BIPOLAR DISORDER. Continue psych medications. 7. DEMENTIA. The patient has periods of agitation. At present, the patient appears to be confused, but not agitated. 8. HYPERLIPIDEMIA AND DYSLIPIDEMIA. Continue statin. 9. CHRONIC SUPRAPUBIC CYSTOSTOMY CATHETER IN SITU. 10. ACUTE RENAL FAILURE. Renal function is improved, but still GFR shows a stage 3a chronic kidney disease. 11. HYPOKALEMIA. Would recommend replacing the patient's potassium. Note: The patient's medications have been reviewed and adjusted. Would recommend maximizing medication to control his blood pressure. Although not very well controlled, the blood pressure is like in the 160s. Will sign off the case. Note: Discussed with the patient's niece. Medical decision making is of moderate to high complexity in view of the need for medication changes. Will sign off and follow the patient as an outpatient. Thanking you for allowing me to participate in the care of this patient. Please call us if there should be any problems with the blood pressure or recurrence of chest pain. Would recommend also to get a troponin I in a couple of days to make sure that it is trending down. Thanking you. DICTATING PHYSICIAN: CHAYA BUTLER M.D. [id number] PHY#: [id number] ID: [id number] JOB#: [id number] ACCT: [id number] cc: >
[2017-11-22] MEDS: HYDRALAZINE HCL INJ/PF 20 MG/1 ML SDV IV PRN ×2 (08:47→16:59)
--- NOTE | 2017-11-22 10:03 | EKG REPORT ---
SEVERITY:- BORDERLINE ECG - SINUS RHYTHM BORDERLINE PROLONGED QT INTERVAL BORDERLINE T ABNORMALITIES, LATERAL LEADS : Confirmed by: Kaitlin Street 22-Nov-2017 10:02:05
[2017-11-22] MEDS: LISINOPRIL 10 MG TABLET PO SCH ×2 (10:29→21:51)
[2017-11-22] MEDS: ASPIRIN 81 MG TABLET, ENT COATED PO SCH (10:29)
[2017-11-22] MEDS: METOPROLOL TARTRATE 50 MG TABLET PO SCH ×2 (10:30→21:51)
[2017-11-22] MEDS: TICAGRELOR 90 MG TABLET PO SCH ×2 (10:31→21:51)
[2017-11-22] MEDS: FAMOTIDINE 20 MG TABLET PO SCH ×2 (10:31→21:51)
[2017-11-22] MEDS: NITROGLYCERIN 15 MG (0.6 MG/1 HR) PATCH.TD24 TD SCH (10:32)
[2017-11-22] MEDS: DOCUSATE SODIUM 100 MG CAPSULE PO SCH ×2 (10:35→17:00)
[2017-11-22 10:48] LABS: ANION GAP 12 (5-19); BLOOD UREA NITROGEN 25 mg/dL (7-20); CALCIUM 8.2 mg/dL (8.4-10.2); CARBON DIOXIDE 25 mmol/L (22-30); CHLORIDE 109 mmol/L (98-107); GLUCOSE 84 mg/dL (75-110); POTASSIUM 3.2 mmol/L (3.6-5.0); SODIUM 145.5 mmol/L (137-145)
--- NOTE | 2017-11-22 11:30 | RADIOLOGY REPORT (SQ) ---
EXAM DESCRIPTION: CT HEAD WITHOUT COMPLETED DATE/TIME: 11/22/2017 11:01 am REASON FOR STUDY: slurred speech COMPARISON: June 2015 TECHNIQUE: Axial images acquired through the brain without intravenous contrast. Images reviewed wi th bone, brain and subdural windows. Additional sagittal and coronal reconstructions were generated. Images stored on PACS. All CT scanners at this facility use dose modulation, iterative reconstruction, and/or weight based d osing when appropriate to reduce radiation dose to as low as reasonably achievable (ALARA). [facility]: Dose Right [facility]: CareDose [facility]: Dose Right [facility]: Teradose 4D [facility]: Smart Taggs RADIATION DOSE: CT Rad equipment meets quality standard of care and radiation dose reduction techniq ues were employed. CTDIvol: 21.5 mGy. DLP: 487 mGy-cm.mGy. LIMITATIONS: None. FINDINGS: VENTRICLES: Prominent. CEREBRUM: No masses. No hemorrhage. No midline shift. Areas of low density in the white matter mos t likely due to chronic micro-vascular ischemic change. No evidence for acute infarction. CEREBELLUM: No masses. No hemorrhage. No alteration of density. No evidence for acute infarction. EXTRAAXIAL SPACES: Age-related involutional change. No fluid collections. No masses. ORBITS AND GLOBE: No intra- or extraconal masses. Normal contour of globe without masses. CALVARIUM: No fracture. PARANASAL SINUSES: No fluid or mucosal thickening. SOFT TISSUES: No mass or hematoma. OTHER: No other significant finding. IMPRESSION: CHRONIC CHANGES OF ATROPHY AND MICROVASCULAR ISCHEMIA. NO ACUTE PROCESS. EVIDENCE OF ACUTE STROKE: NO. TECHNICAL DOCUMENTATION: JOB ID: [id number] Quality ID # [id number]: Final reports with documentation of one or more dose reduction techniques (e.g., Au tomated exposure control, adjustment of the mA and/or kV according to patient size, use of iterative reconstruction technique) 2010 [employer]- All Rights Reserved Reading location - IP/workstation name: [email or web address]
[2017-11-22] MEDS: HYDROCORTISONE 1% CREAM 28.35 GM TP SCH (11:40)
--- NOTE | 2017-11-22 12:16 | PDOC PROGRESS REPORT ---
Subjective Progress Note for:: 11/22/17 Subjective:: I seen patient resting in bed. He is awake alert. Yesterday had an episode of agitation during the daytime, he refused his p.o. medication and he was given 10 mg of Haldol IM stat. Reportedly patient has a slurred speech, so I requested CT scan of the head. Reason For Visit: UTI ACS Physical Exam Vital Signs: Temp Pulse Resp BP Pulse Ox 97.5 F 61 20 184/75 H 98 11/22/17 11:34 11/22/17 11:34 11/22/17 11:34 11/22/17 11:34 11/22/17 11:34 Intake & Output 11/21/17 11/22/17 11/23/17 06:59 06:59 06:59 Intake Total 885 641 Output Total 1100 700 Balance -215 -59 Weight 86.8 kg 86.9 kg General appearance: PRESENT: no acute distress Head exam: PRESENT: atraumatic Eye exam: PRESENT: conjunctiva pink Mouth exam: PRESENT: moist Respiratory exam: PRESENT: clear to auscultation jen. ABSENT: rales, rhonchi, wheezes Cardiovascular exam: PRESENT: RRR. ABSENT: diastolic murmur, rubs, systolic murmur GI/Abdominal exam: PRESENT: normal bowel sounds, soft. ABSENT: distended, guarding, mass, organolmegaly, rebound, tenderness Neurological exam: PRESENT: other - Questionable sides fascial droop Results Laboratory Results: 11/19/17 04:25 11/22/17 09:44 11/22/17 09:44 Sodium 145.5 H Potassium 3.2 L Chloride 109 H Carbon Dioxide 25 Anion Gap 12 BUN 25 H Creatinine 1.30 H Est GFR ( Amer) > 60 Est GFR (Non-Af Amer) 52 L Glucose 84 Calcium 8.2 L 11/17/17 06:45 Blood Blood Culture - Final NO GROWTH IN 5 DAYS 11/17/17 11/17/17 11/17/17 06:45 12:42 18:54 Creatine Kinase CK-MB (CK-2) 48.20 H 39.80 H 24.60 H Troponin I 26.900 27.900 21.700 11/18/17 11/18/17 11/18/17 03:39 08:13 08:13 Creatine Kinase 239 H 200 H CK-MB (CK-2) 9.16 H Troponin I 10.500 11/19/17 11/21/17 04:25 07:00 Creatine Kinase CK-MB (CK-2) 7.87 H Troponin I 5.210 3.730 Impressions: Chest/Abdomen CTA 11/17/17 04:39 IMPRESSION: 1. Diffuse peribronchial interstitial thickening. This could be related to acute bronchitis or bronchopneumonia however a component of interstitial edema could also produce this appearance. 2. Mild bilateral common breasts of atelectasis. 3. Small bilateral pleural effusions. 4. Cardiomegaly with coronary artery atherosclerosis. 5. No pulmonary embolus identified. This exam was performed according to our departmental dose-optimization program, which includes automated exposure control, adjustment of the mA and/or kV according to patient size and/or use of iterative reconstruction technique. Chest X-Ray 11/21/17 06:00 IMPRESSION: Patchy bibasilar consolidation is present left greater than right atelectasis versus pneumonia. Trace left pleural effusion. Head CT 11/22/17 00:00 IMPRESSION: CHRONIC CHANGES OF ATROPHY AND MICROVASCULAR ISCHEMIA. NO ACUTE PROCESS. EVIDENCE OF ACUTE STROKE: NO. Assessment & Plan - Diagnosis (1) Non-STEMI (non-ST elevated myocardial infarction) Is this a current diagnosis for this admission?: Yes Plan: Patient has been treated with Lovenox. No PCI recommended by field clerk. (2) Complicated UTI (urinary tract infection) Is this a current diagnosis for this admission?: Yes Plan: Urine culture grew 3 organisms and all are sensitive to ceftriaxone. (3) Leukocytosis Is this a current diagnosis for this admission?: Yes Plan: Trending down (4) Hypertension Qualifiers: Hypertension type: essential hypertension Qualified Code(s): I10 - Essential (primary) hypertension Is this a current diagnosis for this admission?: Yes Plan: Uncontrolled. Metoprolol 50 mg twice daily added (5) Dementia Qualifiers: Dementia type: unspecified type Is this a current diagnosis for this admission?: Yes Plan: With behavioral disorder. (6) Schizophrenia Is this a current diagnosis for this admission?: Yes Plan: Continue home medications
[2017-11-22] MEDS: ATORVASTATIN CALCIUM 80 MG TABLET PO SCH (21:51)
[2017-11-23] MEDS ORDERED: DEXTROSE 40% GEL 15 GM TUBE PO PRN ×2 (02:51)
[2017-11-23] MEDS ORDERED: DEXTROSE 50%-WATER 25 GM/50 ML DISP.SYRIN IV PRN ×2 (02:51)
[2017-11-23] MEDS ORDERED: GLUCAGON,HUMAN RECOMB 1 MG INJ SUBCUT PRN (02:51)
[2017-11-23] MEDS: HYDRALAZINE HCL 50 MG TABLET PO SCH ×3 (04:18→21:54)
[2017-11-23] MEDS: CEFTRIAXONE SODIUM 1,000 MG in DEXTROSE 5%-WATER 50 ML IV SCH (05:31)
[2017-11-23] MEDS: METOPROLOL TARTRATE 50 MG TABLET PO SCH ×2 (09:56→21:54)
[2017-11-23] MEDS: TICAGRELOR 90 MG TABLET PO SCH ×2 (09:56→21:54)
[2017-11-23] MEDS: FAMOTIDINE 20 MG TABLET PO SCH ×2 (09:56→21:54)
[2017-11-23] MEDS: DOCUSATE SODIUM 100 MG CAPSULE PO SCH ×2 (09:56→17:49)
[2017-11-23] MEDS: ASPIRIN 81 MG TABLET, ENT COATED PO SCH (09:56)
[2017-11-23] MEDS: LISINOPRIL 10 MG TABLET PO SCH ×2 (09:56→21:54)
[2017-11-23 10:18] LABS: ABSOLUTE EOSINOPHILS # (AUTO) 0.2 10^3/uL (0.0-0.6); ABSOLUTE LYMPHOCYTES (AUTO) 0.4 10^3/uL (0.5-4.7); ABSOLUTE MONOCYTES (AUTO) 0.5 10^3/uL (0.1-1.4); ABSOLUTE NEUT (AUTO) 6.5 10^3/uL (1.7-8.2); BASOPHILS % (AUTO) 0.5 % (0-2); EOSINOPHILS % (AUTO) 2.2 % (0-6); HEMATOCRIT 31.5 % (37.9-51.0); HEMOGLOBIN 10.2 g/dL (13.5-17.0); LYMPHOCYTES % (AUTO) 5.5 % (13-45); MEAN CORPUSCULAR HEMOGLOBIN 27.6 pg (27.0-33.4); MEAN CORPUSCULAR HGB CONC 32.3 g/dL (32.0-36.0); MEAN CORPUSCULAR VOLUME 86 fl (80-97); MONOCYTES % (AUTO) 6.7 % (3-13); PLATELET COUNT 250 10^3/uL (150-450); RED BLOOD COUNT 3.68 10^6/uL (4.35-5.55); RED CELL DISTRIBUTION WIDTH 16.5 % (11.5-14.0); SEGMENTED NEUTROPHILS % (AUTO) 85.1 % (42-78); TOTAL CELLS COUNTED % (AUTO) 100 %; WHITE BLOOD COUNT 7.6 10^3/uL (4.0-10.5)
[2017-11-23 10:46] LABS: ANION GAP 15 (5-19); BLOOD UREA NITROGEN 28 mg/dL (7-20); CALCIUM 8.4 mg/dL (8.4-10.2); CARBON DIOXIDE 24 mmol/L (22-30); CHLORIDE 111 mmol/L (98-107); GLUCOSE 75 mg/dL (75-110); POTASSIUM 3.4 mmol/L (3.6-5.0); SODIUM 149.5 mmol/L (137-145)
--- NOTE | 2017-11-23 12:24 | PDOC PROGRESS REPORT ---
Subjective Progress Note for:: 11/23/17 Subjective:: Seen patient lying in bed. He is less responsive and does not follow command. He has questionable left facial droop. CT scan which was done yesterday reported as no acute stroke. Patient scheduled to have MRI of the brain. I reviewed his labs except mild hyponatremia with sodium of 149 the rest are unremarkable. His condition is guarded Reason For Visit: UTI ACS Physical Exam Vital Signs: Temp Pulse Resp BP Pulse Ox 97.9 F 84 14 182/87 H 99 11/23/17 07:45 11/23/17 07:45 11/23/17 07:45 11/23/17 07:45 11/23/17 07:45 Intake & Output 11/22/17 11/23/17 11/24/17 06:59 06:59 06:59 Intake Total 641 70 Output Total 700 400 Balance -59 -330 Weight 86.9 kg 87.7 kg Results Laboratory Results: 11/23/17 09:54 11/23/17 09:54 11/23/17 11/23/17 09:54 09:54 WBC 7.6 RBC 3.68 L Hgb 10.2 L Hct 31.5 L MCV 86 MCH 27.6 MCHC 32.3 RDW 16.5 H Plt Count 250 Seg Neutrophils % 85.1 H Lymphocytes % 5.5 L Monocytes % 6.7 Eosinophils % 2.2 Basophils % 0.5 Absolute Neutrophils 6.5 Absolute Lymphocytes 0.4 L Absolute Monocytes 0.5 Absolute Eosinophils 0.2 Absolute Basophils 0.0 Sodium 149.5 H Potassium 3.4 L Chloride 111 H Carbon Dioxide 24 Anion Gap 15 BUN 28 H Creatinine 1.21 Est GFR ( Amer) > 60 Est GFR (Non-Af Amer) 57 L Glucose 75 Calcium 8.4 11/17/17 11/17/17 11/17/17 06:45 12:42 18:54 Creatine Kinase CK-MB (CK-2) 48.20 H 39.80 H 24.60 H Troponin I 26.900 27.900 21.700 11/18/17 11/18/17 11/18/17 03:39 08:13 08:13 Creatine Kinase 239 H 200 H CK-MB (CK-2) 9.16 H Troponin I 10.500 11/19/17 11/21/17 04:25 07:00 Creatine Kinase CK-MB (CK-2) 7.87 H Troponin I 5.210 3.730 Impressions: Chest/Abdomen CTA 11/17/17 04:39 IMPRESSION: 1. Diffuse peribronchial interstitial thickening. This could be related to acute bronchitis or bronchopneumonia however a component of interstitial edema could also produce this appearance. 2. Mild bilateral common breasts of atelectasis. 3. Small bilateral pleural effusions. 4. Cardiomegaly with coronary artery atherosclerosis. 5. No pulmonary embolus identified. This exam was performed according to our departmental dose-optimization program, which includes automated exposure control, adjustment of the mA and/or kV according to patient size and/or use of iterative reconstruction technique. Chest X-Ray 11/21/17 06:00 IMPRESSION: Patchy bibasilar consolidation is present left greater than right atelectasis versus pneumonia. Trace left pleural effusion. Head CT 11/22/17 00:00 IMPRESSION: CHRONIC CHANGES OF ATROPHY AND MICROVASCULAR ISCHEMIA. NO ACUTE PROCESS. EVIDENCE OF ACUTE STROKE: NO. Assessment & Plan - Diagnosis (1) Non-STEMI (non-ST elevated myocardial infarction) Is this a current diagnosis for this admission?: Yes Plan: Patient has been treated with Lovenox. No PCI recommended by generalist. (2) Complicated UTI (urinary tract infection) Is this a current diagnosis for this admission?: Yes Plan: Urine culture grew 3 organisms and all are sensitive to ceftriaxone. (3) Hypertension Qualifiers: Hypertension type: essential hypertension Qualified Code(s): I10 - Essential (primary) hypertension Is this a current diagnosis for this admission?: Yes Plan: Uncontrolled. Metoprolol 50 mg twice daily added (4) Dementia Qualifiers: Dementia type: unspecified type Is this a current diagnosis for this admission?: Yes Plan: With behavioral disorder. (5) Schizophrenia Is this a current diagnosis for this admission?: Yes Plan: Continue home medications (6) Altered mental status Qualifiers: Altered mental status type: somnolence Qualified Code(s): R40.0 - Somnolence Is this a current diagnosis for this admission?: Yes Plan: Etiology is unclear. CT head is negative and patient is scheduled for MRI of the brain.
--- NOTE | 2017-11-23 12:49 | RADIOLOGY REPORT (SQ) ---
EXAM DESCRIPTION: MRI HEAD WITHOUT COMPLETED DATE/TIME: 11/23/2017 12:33 pm REASON FOR STUDY: AMS and Slurred speech COMPARISON: CT dated 11/22/2017 and 07/04/2015. TECHNIQUE: Multiplanar imaging includes non-contrasted T1, T2, FLAIR, and diffusion with ADC map seq uences. Images stored on PACS. LIMITATIONS: None. FINDINGS: ANATOMY: No anomalies. Normal vascular flow voids. Pituitary fossa normal. CSF SPACES: Atrophy induced prominence of ventricles and CSF spaces. CEREBRUM: High signal intensity lesions scattered throughout the white matter on FLAIR imaging with d istribution suggesting micro-vascular ischemic changes. No evidence of hemorrhage, mass, or extraaxi al fluid collection. POSTERIOR FOSSA: No signal alteration. No hemorrhage. No edema, masses or mass effect. Internal louie tory canals, cerebello-pontine angles, mastoids normal. DIFFUSION IMAGING: Negative for acute or sub-acute infarction. ORBITS: No masses. Globes normal. PARANASAL SINUSES: No fluid levels. Mucosa normal. OTHER: Stable circumscribed subcutaneous scalp lesion in the left occipital region, probably a lipoma . IMPRESSION: ATROPHY AND CHRONIC MICRO-VASCULAR ISCHEMIC CHANGES. OTHERWISE NORMAL MRI OF THE BRAIN W ITHOUT INTRAVENOUS GADOLINIUM CONTRAST. EVIDENCE OF ACUTE STROKE: NO. TECHNICAL DOCUMENTATION: JOB ID: [id number] [employer]- All Rights Reserved Reading location - IP/workstation name: [email or web address]
[2017-11-23] MEDS: NITROGLYCERIN 15 MG (0.6 MG/1 HR) PATCH.TD24 TD SCH (12:51)
[2017-11-23] MEDS: HYDROCORTISONE 1% CREAM 28.35 GM TP SCH (12:52)
[2017-11-23 13:27] LABS: ARTERIAL BLOOD BASE EXCESS 0.6 mmol/L; ARTERIAL BLOOD FIO2 2L; ARTERIAL BLOOD H2CO3 1.42 mmol/L (1.05-1.35); ARTERIAL BLOOD HCO3 26.3 mmol/L (20-26); ARTERIAL BLOOD O2 SATURATION 97.2 % (94-98); ARTERIAL BLOOD PCO2 47.3 mmHg (35-45); ARTERIAL BLOOD PH 7.36 (7.35-7.45); ARTERIAL BLOOD PO2 98.8 mmHg (80-100); ARTERIAL BLOOD TOTAL CO2 27.8 mmol/L (23-27)
[2017-11-23] MEDS: HYDRALAZINE HCL INJ/PF 20 MG/1 ML SDV IV PRN (15:47)
[2017-11-23] MEDS: ATORVASTATIN CALCIUM 80 MG TABLET PO SCH (21:54)
[2017-11-24] MEDS: CEFTRIAXONE SODIUM 1,000 MG in DEXTROSE 5%-WATER 50 ML IV SCH (05:07)
[2017-11-24] MEDS: HYDRALAZINE HCL 50 MG TABLET PO SCH ×3 (05:11→22:03)
[2017-11-24] MEDS: HYDRALAZINE HCL INJ/PF 20 MG/1 ML SDV IV PRN ×2 (08:54→20:10)
[2017-11-24] MEDS: DEXTROSE 5%-NORMAL SALINE 1,000 ML IV PRN ×2 (08:56→22:11)
[2017-11-24] MEDS: ASPIRIN 81 MG TABLET, ENT COATED PO SCH (10:21)
[2017-11-24] MEDS: FAMOTIDINE 20 MG TABLET PO SCH ×2 (10:22→22:03)
[2017-11-24] MEDS: TICAGRELOR 90 MG TABLET PO SCH ×2 (10:22→22:03)
[2017-11-24] MEDS: LISINOPRIL 10 MG TABLET PO SCH ×2 (10:22→22:03)
[2017-11-24] MEDS: DOCUSATE SODIUM 100 MG CAPSULE PO SCH ×2 (10:22→17:40)
[2017-11-24] MEDS: METOPROLOL TARTRATE 50 MG TABLET PO SCH ×2 (10:23→22:03)
[2017-11-24] MEDS: HYDROCORTISONE 1% CREAM 28.35 GM TP SCH (10:24)
[2017-11-24] MEDS: NITROGLYCERIN 15 MG (0.6 MG/1 HR) PATCH.TD24 TD SCH (10:24)
--- NOTE | 2017-11-24 12:22 | PDOC PROGRESS REPORT ---
Subjective Progress Note for:: 11/24/17 Subjective:: Patient is relatively better today awake alert and follow commands. He is reevaluated by speech therapist today and she recommended nectar thick diet. MRI CT head are negative for stroke and his ABGs normal. Reason For Visit: UTI ACS Physical Exam Vital Signs: Temp Pulse Resp BP Pulse Ox 97.9 F 97 16 184/82 H 96 11/24/17 04:13 11/24/17 07:00 11/24/17 04:13 11/24/17 04:13 11/24/17 10:36 Intake & Output 11/23/17 11/24/17 11/25/17 06:59 06:59 06:59 Intake Total 70 63 Output Total 400 750 Balance -330 -687 Weight 87.7 kg 85.4 kg Results Laboratory Results: 11/23/17 09:54 11/23/17 09:54 11/23/17 13:10 Carbonic Acid 1.42 H HCO3/H2CO3 Ratio 18:1 ABG pH 7.36 ABG pCO2 47.3 H ABG pO2 98.8 ABG HCO3 26.3 H ABG O2 Saturation 97.2 ABG Base Excess 0.6 FiO2 2L 11/17/17 11/17/17 11/17/17 06:45 12:42 18:54 Creatine Kinase CK-MB (CK-2) 48.20 H 39.80 H 24.60 H Troponin I 26.900 27.900 21.700 11/18/17 11/18/17 11/18/17 03:39 08:13 08:13 Creatine Kinase 239 H 200 H CK-MB (CK-2) 9.16 H Troponin I 10.500 11/19/17 11/21/17 04:25 07:00 Creatine Kinase CK-MB (CK-2) 7.87 H Troponin I 5.210 3.730 Impressions: Chest/Abdomen CTA 11/17/17 04:39 IMPRESSION: 1. Diffuse peribronchial interstitial thickening. This could be related to acute bronchitis or bronchopneumonia however a component of interstitial edema could also produce this appearance. 2. Mild bilateral common breasts of atelectasis. 3. Small bilateral pleural effusions. 4. Cardiomegaly with coronary artery atherosclerosis. 5. No pulmonary embolus identified. This exam was performed according to our departmental dose-optimization program, which includes automated exposure control, adjustment of the mA and/or kV according to patient size and/or use of iterative reconstruction technique. Chest X-Ray 11/21/17 06:00 IMPRESSION: Patchy bibasilar consolidation is present left greater than right atelectasis versus pneumonia. Trace left pleural effusion. Head CT 11/22/17 00:00 IMPRESSION: CHRONIC CHANGES OF ATROPHY AND MICROVASCULAR ISCHEMIA. NO ACUTE PROCESS. EVIDENCE OF ACUTE STROKE: NO. Head MRI 11/23/17 00:00 IMPRESSION: ATROPHY AND CHRONIC MICRO-VASCULAR ISCHEMIC CHANGES. OTHERWISE NORMAL MRI OF THE BRAIN WITHOUT INTRAVENOUS GADOLINIUM CONTRAST. EVIDENCE OF ACUTE STROKE: NO. Assessment & Plan - Diagnosis (1) Non-STEMI (non-ST elevated myocardial infarction) Is this a current diagnosis for this admission?: Yes Plan: Continue current regimen (2) Complicated UTI (urinary tract infection) Is this a current diagnosis for this admission?: Yes Plan: Urine culture grew 3 organisms and all are sensitive to ceftriaxone. Continue ceftriaxone (3) Hypertension Qualifiers: Hypertension type: essential hypertension Qualified Code(s): I10 - Essential (primary) hypertension Is this a current diagnosis for this admission?: Yes Plan: Uncontrolled. Metoprolol 50 mg twice daily added (4) Dementia Qualifiers: Dementia type: unspecified type Is this a current diagnosis for this admission?: Yes Plan: With behavioral disorder. (5) Schizophrenia Is this a current diagnosis for this admission?: Yes Plan: Continue home medications (6) Altered mental status Qualifiers: Altered mental status type: somnolence Qualified Code(s): R40.0 - Somnolence Is this a current diagnosis for this admission?: Yes Plan: Etiology is unclear. CT head is negative and patient is scheduled for MRI of the brain. May be related to his underlying schizophrenia and dementia.
[2017-11-24] MEDS: METOPROLOL TARTRATE PF/INJ 5 MG/5 ML SDV IV PRN (20:40)
[2017-11-24] MEDS: ATORVASTATIN CALCIUM 80 MG TABLET PO SCH (21:59)
[2017-11-25] MEDS: HYDRALAZINE HCL 50 MG TABLET PO SCH ×2 (06:02→13:49)
[2017-11-25] MEDS: FAMOTIDINE 20 MG TABLET PO SCH (10:10)
[2017-11-25] MEDS: TICAGRELOR 90 MG TABLET PO SCH (10:11)
[2017-11-25] MEDS: ASPIRIN 81 MG TABLET, ENT COATED PO SCH (10:11)
[2017-11-25] MEDS: LISINOPRIL 10 MG TABLET PO SCH (10:11)
[2017-11-25] MEDS: METOPROLOL TARTRATE 50 MG TABLET PO SCH (10:11)
[2017-11-25] MEDS: DOCUSATE SODIUM 100 MG CAPSULE PO SCH (10:11)
[2017-11-25] MEDS: NITROGLYCERIN 15 MG (0.6 MG/1 HR) PATCH.TD24 TD SCH (10:11)
[2017-11-25] MEDS: HYDROCORTISONE 1% CREAM 28.35 GM TP SCH (10:12)
--- NOTE | 2017-11-25 10:42 | PDOC TRANSFER SUMMARY ---
General - Admit/Disc Date/PCP Admission Date/Primary Care Provider: 11/17/17 05:03 CHERELLE GARCIA Discharge Date: 11/25/17 - Discharge Diagnosis (1) Non-STEMI (non-ST elevated myocardial infarction) Is this a current diagnosis for this admission?: Yes (2) Complicated UTI (urinary tract infection) Is this a current diagnosis for this admission?: Yes (3) Hypertension Is this a current diagnosis for this admission?: Yes (4) Dementia Is this a current diagnosis for this admission?: Yes (5) Schizophrenia Is this a current diagnosis for this admission?: Yes (6) Altered mental status Is this a current diagnosis for this admission?: Yes (7) Hypertensive emergency Is this a current diagnosis for this admission?: Yes (8) Systolic chf exacerbation Is this a current diagnosis for this admission?: Yes - Additional Information Resuscitation Status: Do Not Resuscitate Discharge Diet: Cardiac Prescriptions: Aspirin [Ecotrin 81 mg EC Tablet] 81 mg PO DAILY #30 tabec Atorvastatin Calcium [Lipitor 80 mg Tablet] 40 mg PO QHS #30 tablet Lisinopril [Prinivil 10 mg Tablet] 40 mg PO Q12 #60 tablet Ticagrelor [Brilinta 90 mg Tablet] 90 mg PO Q12 #60 tablet Home Medications: Acetaminophen [Tylenol 325 mg Tablet] 650 mg PO Q6HP PRN 11/17/17 Allopurinol [Zyloprim 100 mg Tablet] 200 mg PO DAILY 11/17/17 Clonidine HCl [Catapres 0.3 mg Tablet] 0.3 mg PO Q12 11/17/17 Cyanocobalamin (Vitamin B-12) [Vitamin B-12] 500 mcg PO DAILY 11/17/17 Diphenhydramine HCl [Benadryl] 25 mg PO BIDP PRN 11/17/17 Finasteride [Proscar 5 mg Tablet] 5 mg PO DAILY 11/17/17 Furosemide [Lasix 20 mg Tablet] 20 mg PO DAILY 11/17/17 Hydrocortisone [Hydrocortisone 1% Cream 28.35 gm] 1 applic TP BIDP PRN 11/17/17 Hydrocortisone [Hydrocortisone 1% Cream 28.35 gm] 1 applic TP DAILY 11/17/17 Losartan Potassium [Cozaar 100 mg Tablet] 100 mg PO DAILY 11/17/17 Multivitamin/Iron/Folic Acid [Centrum Adults Tablet] 1 each PO DAILY 11/17/17 Nifedipine [Adalat CC 90 mg Tablet] 90 mg PO DAILY 11/17/17 Omeprazole 20 mg PO Q6AM 11/17/17 Polyethylene Glycol 3350 [Miralax Powder 17 gm/Packet] 1 packet PO DAILYP PRN Potassium Chloride [Klor-Con 10 Meq Capsule ER] 10 meq PO DAILY 11/17/17 Quetiapine Fumarate [Seroquel 25 mg Tablet] 25 mg PO QHS 11/17/17 Aspirin [Ecotrin 81 mg EC Tablet] 81 mg PO DAILY #30 tabec 11/25/17 Atorvastatin Calcium [Lipitor 80 mg Tablet] 40 mg PO QHS #30 tablet 11/25/17 Lisinopril [Prinivil 10 mg Tablet] 40 mg PO Q12 #60 tablet 11/25/17 Ticagrelor [Brilinta 90 mg Tablet] 90 mg PO Q12 #60 tablet 11/25/17 History of Present Illness Admission Date/PCP: 11/17/17 05:03 CHERELLE GARCIA History of Present Illness: WILLA PRECIADO is a 87 year old male senior living resident with a past medical history of schizophrenia, hypertension , dyslipidemia and permanent suprapubic catheter. He is noted by nursing staff to have shortness of breath and brought to the emergency room for evaluation where he denies pain or shortness of breath. Evaluation reveals new T-wave inversion and elevated troponin of 2.5. Heparin is initiated and a CTA chest is ordered and is referred to the hospitalist for admission. Patient is unable to provide a helpful history. Hospital Course Hospital Course: Mr. Preciado is an 87 years old male patient who is [facility] senior living resident brought with chief complaint of shortness of breath and altered mental status. At arrival patient found to be in hypertensive emergency for which she has been started on nitroglycerin and Cardene drip and admitted to ICU. His blood work showed markedly elevated troponin which the initial troponin was 2.52 subsequent 2 sessions of troponin where 26.9 and 27.9 respectively. At this point Dr. Stubbs senior hr manager consulted and he recommended to manage him with therapeutic dose of Lovenox, aspirin, Brilinta, nitrates, beta-gil and lisinopril. Patient has chronic suprapubic [place] catheter and his urine culture grew multiple organisms including Enterococcus faecalis, Enterobacter colitis he, S. aureus and group B streptococcus and patient was managed accordingly with ceftriaxone for complicated UTI. During his stay patient found to have hypokalemia which was corrected. His hospital course is complicated by questionable slurred speech and questionable left facial droop for which patient was worked up his CT scan of the head and MRI of the brain and was found to be negative. This morning I seen patient propped up in bed chatting with his daughter and trying to the paper. His vital signs are relatively stable his blood works are also within normal limits. Patient is stable enough to be discharged. I will continue all his home medication and I will prescribe for him aspirin 81 mg p.o. daily, Brilinta 90 mg twice a day, Lipitor 40 mg p.o. nightly and metoprolol 50 mg twice a day. Physical Exam Vital Signs: Temp Pulse Resp BP Pulse Ox 98.7 F 71 20 194/84 H 93 11/25/17 07:26 11/25/17 07:26 11/25/17 07:26 11/25/17 07:26 11/25/17 07:26 Intake & Output 11/24/17 11/25/17 11/26/17 06:59 06:59 06:59 Intake Total 63 1289 Output Total 750 900 Balance -687 389 Weight 85.4 kg 86.7 kg General appearance: PRESENT: no acute distress Head exam: PRESENT: atraumatic Mouth exam: PRESENT: moist Respiratory exam: PRESENT: clear to auscultation jen. ABSENT: rales, rhonchi, wheezes Cardiovascular exam: PRESENT: RRR. ABSENT: diastolic murmur, rubs, systolic murmur GI/Abdominal exam: PRESENT: normal bowel sounds, soft. ABSENT: distended, guarding, mass, organolmegaly, rebound, tenderness Neurological exam: PRESENT: alert, awake Psychiatric exam: PRESENT: normal mood Results Laboratory Results: 11/23/17 09:54 11/23/17 09:54 11/22/17 09:20 Suprapubic Catheter Urine Culture - Final Enterococcus Faecalis(Group D) Enterobacter Cloacae Staphylococcus Aureus 11/17/17 11/17/17 11/17/17 06:45 12:42 18:54 Creatine Kinase CK-MB (CK-2) 48.20 H 39.80 H 24.60 H Troponin I 26.900 27.900 21.700 11/18/17 11/18/17 11/18/17 03:39 08:13 08:13 Creatine Kinase 239 H 200 H CK-MB (CK-2) 9.16 H Troponin I 10.500 11/19/17 11/21/17 04:25 07:00 Creatine Kinase CK-MB (CK-2) 7.87 H Troponin I 5.210 3.730 Impressions: Chest/Abdomen CTA 11/17/17 04:39 IMPRESSION: 1. Diffuse peribronchial interstitial thickening. This could be related to acute bronchitis or bronchopneumonia however a component of interstitial edema could also produce this appearance. 2. Mild bilateral common breasts of atelectasis. 3. Small bilateral pleural effusions. 4. Cardiomegaly with coronary artery atherosclerosis. 5. No pulmonary embolus identified. This exam was performed according to our departmental dose-optimization program, which includes automated exposure control, adjustment of the mA and/or kV according to patient size and/or use of iterative reconstruction technique. Chest X-Ray 11/21/17 06:00 IMPRESSION: Patchy bibasilar consolidation is present left greater than right atelectasis versus pneumonia. Trace left pleural effusion. Head CT 11/22/17 00:00 IMPRESSION: CHRONIC CHANGES OF ATROPHY AND MICROVASCULAR ISCHEMIA. NO ACUTE PROCESS. EVIDENCE OF ACUTE STROKE: NO. Head MRI 11/23/17 00:00 IMPRESSION: ATROPHY AND CHRONIC MICRO-VASCULAR ISCHEMIC CHANGES. OTHERWISE NORMAL MRI OF THE BRAIN WITHOUT INTRAVENOUS GADOLINIUM CONTRAST. EVIDENCE OF ACUTE STROKE: NO. Qualifiers - * PATIENT BEING DISCHARGED WITH ANY OF THE FOLLOWING DIAGNOSIS: Heart Failure VTE patient discharged on overlapping Therapy?: No Reason(s) for not prescribing Overlap Therapy:: Not indicated Stroke Pt being discharged on Anti-thrombolytic therapy?: No Reason(s) for not prescribing Anti-thrombolytic therapy:: Not indicated Stroke Pt being discharged on Anti-coagulation therapy?: No Reason(s) for not prescribing Anti-coagulation therapy:: Not indicated Stroke Pt being discharged on Statins?: No Reason(s) for not prescribing Statins therapy:: Not indicated [place] Pt being discharged on Aspirin therapy?: No Reason(s) for not prescribing Aspirin therapy:: Not indicated [place] Pt being discharged on Statins?: No Reason(s) for not prescribing Statin therapy:: Not indicated [place] Pt discharged ACEI/ARBS?: No Reason(s) for not prescribing ACEI/ARBS:: Not indicated HF Pt being discharged on ACEI for LVEF less than 40%?: Yes HF Pt being discharged on ARBS for LVEF less than 40%?: Yes HF Pt with Afib discharged with Warfarin?: No Reason(s) for not prescribing Warfarin:: Not indicated HF Pt discharged on evidence-based Beta Gil:: Yes
[2017-11-25 12:27] VITALS: BP 194/72
[2017-11-25] MEDS: HYDRALAZINE HCL INJ/PF 20 MG/1 ML SDV IV PRN (12:32)
[2017-11-25] MEDS ORDERED: METOPROLOL TARTRATE 100 MG TABLET PO ONE (13:30)
== END 2017-11-25 14:50 | DRG 280 ==
LOC: ER 01:15 → EH 05:03 → 3N 06:31 → ICU 18:56 → 3N 11-19 10:13
PROVIDERS: ADMIT Internal Medicine; ATTEND Internal Medicine
DX: I21.4 Non-ST elevation (NSTEMI) myocardial infarction (principal); J18.9 Pneumonia, unspecified organism; I50.21 Acute systolic (congestive) heart failure; T83.511A Infection and inflammatory reaction due to indwelling urethral catheter, initial encounter; N39.0 Urinary tract infection, site not specified; N17.9 Acute kidney failure, unspecified; I13.0 Hypertensive heart and chronic kidney disease with heart failure and stage 1 through stage 4 chronic kidney disease, or unspecified chronic kidney disease; F05 Delirium due to known physiological condition; N18.3 Chronic kidney disease, stage 3 (moderate); E87.6 Hypokalemia; L29.9 Pruritus, unspecified; I16.0 Hypertensive urgency; M79.89 Other specified soft tissue disorders; E78.00 Pure hypercholesterolemia, unspecified; Z96.0 Presence of urogenital implants; F20.9 Schizophrenia, unspecified; R45.1 Restlessness and agitation; F03.90 Unspecified dementia, unspecified severity, without behavioral disturbance, psychotic disturbance, mood disturbance, and anxiety; B95.2 Enterococcus as the cause of diseases classified elsewhere; B96.89 Other specified bacterial agents as the cause of diseases classified elsewhere; B95.61 Methicillin susceptible Staphylococcus aureus infection as the cause of diseases classified elsewhere; B95.1 Streptococcus, group B, as the cause of diseases classified elsewhere
CPT/HCPCS: 36415; 70450; 70551; 71045; 71275; 80048; 80053; 80061; 81001; 82550; 82553; 82803; 84484; 85025; 85027; 87040; 87086; 87088; 87186; 93005; 93010; 93306; 96372; 99285; G8978-GP; G8979-GP; G8996-GN; G8997-GN; J0360; J0696; J1630; J1650; J1940; J2270; J3230; J3490; J7030